=== PATIENT | female | born 1990 | race American Indian/Alaskan Native ===

== ENCOUNTER 2017-12-25 21:55 | Emergency (ER) | payer SELFPAY ==
--- NOTE | 2017-12-25 23:22 | Emergency Department Report ---
ED Seizure HPI - General Chief Complaint: Seizure Stated Complaint: SEIZURE Time Seen by Provider: 12/25/17 23:09 Source: patient Mode of arrival: Stretcher Limitations: No Limitations - History of Present Illness Initial Comments: Patient is 27-year-old female with history of bipolar currently admitted to a psychiatric facility. Patient brought to the ER via EMS for evaluation of possible seizure. Parents is present at time of examination. Patient parent Stated that patient never had any history of seizure until last Wednesday when she started having a jerking movement but patient was alert and oriented 3 rotation was she's having this moment. She told them that she was diagnosed with seizure while she was incarcerated and she was treated with his Trileptal. Patient had one episode this evening and she received 2 mg of Ativan. MD Complaint: possible seizure - Related Data Allergies Allergy/AdvReac Type Severity Reaction Status Date / Time No Known Allergies Allergy Verified 12/25/17 23:29 ED Review of Systems ROS: Stated complaint: SEIZURE Other details as noted in HPI Comment: All other systems reviewed and negative Constitutional: denies: chills, fever Respiratory: denies: cough, orthopnea, shortness of breath, SOB with exertion, SOB at rest, wheezing Cardiovascular: denies: chest pain Gastrointestinal: denies: abdominal pain, nausea, vomiting ED Past Medical Hx - Past Medical History Previous Medical History?: Yes Hx Seizures: Yes Hx Psychiatric Treatment: Yes (Bipolar, Schizoaffective Disorder) ED Physical Exam - General Limitations: No Limitations General appearance: alert, in no apparent distress - Head Head exam: Present: atraumatic, normocephalic, normal inspection - Eye Eye exam: Present: normal appearance - ENT ENT exam: Present: normal exam, normal orophraynx, mucous membranes moist - Respiratory Respiratory exam: Present: normal lung sounds bilaterally. Absent: respiratory distress, wheezes, rales, rhonchi, stridor, chest wall tenderness, accessory muscle use, decreased breath sounds, prolonged expiratory - Cardiovascular Cardiovascular Exam: Present: regular rate, normal rhythm, normal heart sounds - GI/Abdominal GI/Abdominal exam: Present: soft, normal bowel sounds. Absent: distended, tenderness, guarding, rebound, rigid, mass, bruit - Extremities Exam Extremities exam: Present: normal inspection, full ROM, normal capillary refill - Back Exam Back exam: Present: normal inspection, full ROM. Absent: tenderness, CVA tenderness (R), CVA tenderness (L), muscle spasm, paraspinal tenderness, vertebral tenderness, rash noted - Neurological Exam Neurological exam: Present: alert, oriented X3, CN II-XII intact, normal gait, reflexes normal - Psychiatric Psychiatric exam: Present: anxious. Absent: flat affect, manic - Skin Skin exam: Present: warm, intact, normal color ED Course Vital Signs 12/25/17 22:12 Temperature 98.8 F Pulse Rate 90 Respiratory 20 Rate Blood Pressure 114/65 O2 Sat by Pulse 98 Oximetry - Reevaluation(s) Reevaluation #1: 12/26/17 01:16 No evidence of seizure observed in the ER. Patient received Keppra 500 IV bolus. We will start patient on Keppra 500 twice a day and to follow-up with her neurologist in the next 2-3 days. ED Medical Decision Making - Lab Data Result diagrams: 12/25/17 23:39 12/25/17 23:39 Critical care attestation.: If time is entered above; I have spent that time in minutes in the direct care of this critically ill patient, excluding procedure time. ED Disposition Clinical Impression: Seizure Disposition: DC/TX-65 PSY HOSP/PSY UNIT Is pt being admited?: No Condition: Stable Instructions: Recurrent Seizures Adult (ED) Referrals: PRIMARY CARE, [Primary Care Provider] - 3-5 Days
[2017-12-25] MEDS ORDERED: KEPPRA 500 MG/NS 0.82% 100 ML 500 MG/100 ML BAG IV ONE (23:24)
[2017-12-26 00:01] LABS: Basophils # (Auto) 0.1 K/mm3 (0.0-0.1); Eosinophils # (Auto) 0.1 K/mm3 (0.0-0.4); Eosinophils % (Auto) 1.3 % (0.0-4.3); Hematocrit 31.5 % (30.3-42.9); Hemoglobin 10.5 gm/dl (10.1-14.3); Lymphocytes # (Auto) 2.4 K/mm3 (1.2-5.4); Lymphocytes % (Auto) 32.1 % (13.4-35.0); Mean Corpuscular HGB Conc 33 % (30-34); Mean Corpuscular Hemoglobin 29 pg (28-32); Mean Corpuscular Volume 88 fl (79-97); Monocytes # (Auto) 0.7 K/mm3 (0.0-0.8); Monocytes % (Auto) 9.2 % (0.0-7.3); Platelet Count 257 K/mm3 (140-440); Red Blood Count 3.57 M/mm3 (3.65-5.03); Red Cell Distribution Width 14.3 % (13.2-15.2)
[2017-12-26 00:11] LABS: Alanine Aminotransferase 55 units/L (7-56); Albumin 3.9 g/dL (3.9-5); BUN/Creatinine Ratio 20; Blood Urea Nitrogen 12 mg/dL (7-17); Calcium 9.4 mg/dL (8.4-10.2); Hemolysis Index 8
[2017-12-26 00:35] LABS: Bilirubin,Direct < 0.2 mg/dL (0-0.2)
[2017-12-26 00:48] LABS: Bacteria,Urine 2+ /HPF (Negative); Bilirubin,Urine NEG (Negative); Blood,Urine LG (Negative); Color,Urine Yellow (Yellow); Protein,Urine <15 mg/dL mg/dL (Negative); Urobilinogen,Urine < 2.0 mg/dL (<2.0)
[2017-12-26 00:54] LABS: Amphetamine Screen,Urine PRESUMPTIVE NEGATIVE; Benzodiazepines Screen,Urine PRESUMPTIVE NEGATIVE; Cannabinoid Screen,Urine PRESUMPTIVE NEGATIVE; Cocaine Screen,Urine PRESUMPTIVE NEGATIVE; Methadone Screen,Urine PRESUMPTIVE NEGATIVE; Opiate Screen,Urine PRESUMPTIVE NEGATIVE
[2017-12-26 02:04] VITALS: BP 117/73
== END 2017-12-26 02:50 ==
LOC: ED 21:55
DX: R56.9 Unspecified convulsions (principal); F31.9 Bipolar disorder, unspecified; F25.9 Schizoaffective disorder, unspecified
CPT/HCPCS: 36415; 80048; 80074; 80307; 81001; 84703; 85025; 96374; 99285; G0480; J1953; 80320

== ENCOUNTER 2017-12-30 17:00 | Emergency (ER) | payer SELFPAY ==
[2017-12-30 17:22] VITALS: BP 130/78
== END 2017-12-30 20:50 | disposition left against medical advice (07) ==
LOC: ED 17:00
DX: R56.9 Unspecified convulsions (principal); Z53.21 Procedure and treatment not carried out due to patient leaving prior to being seen by health care provider

== ENCOUNTER 2018-01-21 20:33 | Emergency (ER) | payer SELFPAY ==
[2018-01-21] MEDS ORDERED: BENADRYL ONE (20:39)
[2018-01-21] MEDS ORDERED: BENADRYL IM ONE (20:41)
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
--- NOTE | 2018-01-21 21:10 | XRay Report ---
FINAL REPORT PROCEDURE: XR CHEST 1V AP TECHNIQUE: Chest radiograph anteroposterior view. CPT 00450 HISTORY: overdose ? aspiration COMPARISON: No prior studies are available for comparison. FINDINGS: Heart: Normal. Mediastinum/Vessels: Normal. Lungs/Pleural space: Normal. Bony thorax: No acute osseous abnormality. Life support devices: None. IMPRESSION: No acute cardiopulmonary abnormality.
[2018-01-21] MEDS ORDERED: HALDOL IM PRN (21:19)
[2018-01-21 21:23] LABS: Hematocrit 33.5 % (30.3-42.9); Hemoglobin 11.1 gm/dl (10.1-14.3); Mean Corpuscular HGB Conc 33 % (30-34); Mean Corpuscular Hemoglobin 30 pg (28-32); Mean Corpuscular Volume 89 fl (79-97); Platelet Count 246 K/mm3 (140-440); Red Blood Count 3.75 M/mm3 (3.65-5.03); Red Cell Distribution Width 13.7 % (13.2-15.2)
[2018-01-21] MEDS ORDERED: NACL 0.9% 1000 ML 1,000 ML IV ONE (21:30)
[2018-01-21 21:39] LABS: Alanine Aminotransferase 39 units/L (7-56); Albumin 4.2 g/dL (3.9-5); BUN/Creatinine Ratio 20; Blood Urea Nitrogen 12 mg/dL (7-17); Calcium 9.7 mg/dL (8.4-10.2); Hemolysis Index 14
[2018-01-21 21:53] LABS: Bilirubin,Urine NEG (Negative); Blood,Urine LG (Negative); Color,Urine Yellow (Yellow); Mucus,Urine FEW /HPF; Protein,Urine <15 mg/dL mg/dL (Negative); Urobilinogen,Urine < 2.0 mg/dL (<2.0)
[2018-01-21 21:54] LABS: RBC,Urine > 182.0 /HPF (0.0-6.0)
--- NOTE | 2018-01-21 22:16 | Cat Scan Report ---
FINAL REPORT PROCEDURE: CT HEAD/BRAIN WO CON TECHNIQUE: Computerized tomography of the head was performed without contrast material. HISTORY: overdose altered found down COMPARISON: No prior studies are available for comparison. FINDINGS: Skull and scalp: Normal. Paranasal sinuses: Normal. Ventricles and subarachnoid spaces: Normal. Cerebrum: No evidence of hemorrhage, acute infarction or mass . Cerebellum and brainstem: No evidence of hemorrhage, acute infarction or mass. Vasculature: Normal. Comments: None. IMPRESSION: Normal Examination
--- NOTE | 2018-01-21 22:29 | Cat Scan Report ---
FINAL REPORT PROCEDURE: CT CERVICAL SPINE WO CON TECHNIQUE: Computerized tomography of the cervical spine was performed from the skull base to T1 without contrast material. HISTORY: overdose altered found down COMPARISON: No prior studies are available for comparison. FINDINGS: Vertebral height is within normal limits. An acute fracture is not identified. There is loss of cervical lordosis. C1-2: No significant abnormality. C2-3: No significant abnormality. C3-4: No significant abnormality. C4-5: No significant abnormality. C5-6: No significant abnormality. C6-7: No significant abnormality. C7-T1: No significant abnormality. Other: No additional findings. IMPRESSION: Straightening of the cervical spine is most likely secondary to spasm or positioning. No acute fracture No obvious spinal canal or neural foraminal compromise..
[2018-01-21] MEDS ORDERED: K-DUR PO ONE (22:30)
[2018-01-21] MEDS ORDERED: MAGNESIUM SULFATE 2GM/50ML 2 GM/50 ML BAG IV ONE (22:30)
[2018-01-21] MEDS ORDERED: MAG-OX PO STA (22:30)
[2018-01-21 23:27] LABS: Amphetamine Screen,Urine PRESUMPTIVE NEGATIVE; Benzodiazepines Screen,Urine PRESUMPTIVE NEGATIVE; Cannabinoid Screen,Urine PRESUMPTIVE NEGATIVE; Cocaine Screen,Urine PRESUMPTIVE NEGATIVE; Methadone Screen,Urine PRESUMPTIVE NEGATIVE; Opiate Screen,Urine PRESUMPTIVE NEGATIVE
[2018-01-21] MEDS: KCL 10MEQ/100ML 10 MEQ/100 ML BAG IV SCH (23:52)
[2018-01-22] MEDS: KCL 10MEQ/100ML 10 MEQ/100 ML BAG IV SCH ×3 (05:10→08:06)
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
[2018-01-23 00:35] LABS: BUN/Creatinine Ratio 21; Blood Urea Nitrogen 17 mg/dL (7-17); Calcium 9.3 mg/dL (8.4-10.2)
[2018-01-23 00:36] LABS: Hemolysis Index 5
[2018-01-23] MEDS: ATIVAN IM PRN ×2 (09:00→18:47)
[2018-01-23] MEDS ORDERED: KEPPRA 1,000 MG/NS 0.75% 100ML 1,000 MG/100 ML BAG IV ONE (09:07)
[2018-01-23] MEDS ORDERED: ATIVAN IV ONE (09:07)
--- NOTE | 2018-01-23 23:56 | Progress Note ---
Subjective - Reason for Consult Consult date: 01/23/18 Reason for consult: Psychiatric Follow-up Evaluation - Chief Complaint Chief complaint: " Ready to go" Mental Status Exam - Vital signs Last Vital Signs Temp 98.3 F 01/23/18 21:00 Pulse 112 H 01/23/18 21:00 Resp 20 01/23/18 21:00 BP 133/76 01/23/18 21:00 Pulse Ox 99 01/23/18 21:00
[2018-01-24] MEDS ORDERED: TRILEPTAL PO ONE (09:28)
[2018-01-24] MEDS ORDERED: KEPPRA PO SCH (10:00)
--- NOTE | 2018-01-24 11:52 | Progress Note ---
Subjective - Reason for Consult Consult date: 01/24/18 Reason for consult: Psychiatry Follow-up - Chief Complaint Chief complaint: "I want to join my friend" 27-year-old AA female who present to the ER for overdosing on several pills. Today the patient is calm and cooperative, but depressed during the assessment. She rate her depression 6/10, with 10 being the worse because of the voices. She stated that the voices are loud and active in her ear. She could not elaborate about what the voices are saying when asked. Also, she stated that she want to "" because of the voices and to join her best friend who recently. She stated that she would overdose when given the chance. She denies HI's and VH's. She denies any side effects of her medication. Mental Status Exam - Vital signs Last Vital Signs Temp 97.9 F 01/24/18 09:47 Pulse 91 H 01/24/18 09:47 Resp 18 01/24/18 09:47 BP 110/78 01/24/18 09:47 Pulse Ox 98 01/24/18 09:47 - Exam Narrative exam: MSE: Appearance: calm, cooperative Behavior: regular eye contact Speech: regular rate and tone Mood: "depressed" Affect: congruent to mood Thought Process: circumstantial Thought Content: denies HI's and VH's Motor Activity: sitting up in the bed Cognition: A/O x 3 Insight: poor Judgment: poor Assessment and Plan Impression: Unspecified Psychosis. Today the patient is calm and cooperative during the assessment. The patient endorses SI's with a plan to overdose. UDS negative. DDx: R/O Schizophrenia, Schizoaffective DO, R/O Bipolar DO, R/O MDD with psychosis Recommendations/Plan: Continue 1013 with placement to inpatient psy services. Increase Seroquel to 200 mg PO HS for mood/psychosis. Discussed possible metabolic side effects of Seroquel with the patient.
[2018-01-24] MEDS: KEPPRA PO SCH ×2 (16:24→22:13)
[2018-01-25] MEDS: KEPPRA PO SCH ×3 (08:32→20:19)
--- NOTE | 2018-01-25 13:45 | Progress Note ---
Subjective - Reason for Consult Consult date: 01/25/18 Reason for consult: Psychiatry Follow-up - Chief Complaint Chief complaint: "I feel better" 27-year-old AA female who present to the ER for overdosing on several pills. Today the patient is calm and cooperative during the assessment. She stated that she feel better, but still miss her friend who committed suicide early this year. She stated that the voices has "ceased." She denies SI/Hi's and AVH' s. She denies any side effects of her medication. Mental Status Exam - Vital signs Last Vital Signs Temp 99.0 F 01/24/18 21:00 Pulse 76 01/24/18 21:00 Resp 16 01/24/18 21:00 BP 121/82 01/24/18 21:00 Pulse Ox 98 01/24/18 21:00 - Exam Narrative exam: MSE: Appearance: calm, cooperative Behavior: regular eye contact Speech: regular rate and tone Mood: "better" Affect: congruent to mood Thought Process: circumstantial Thought Content: denies SI/HI's and AVH's Motor Activity: sitting up in the bed Cognition: A/O x 3 Insight: variable Judgment: variable Assessment and Plan Impression: Unspecified Psychosis. Today the patient is calm and cooperative during the assessment. UDS negative. DDx: R/O Schizophrenia, Schizoaffective DO, R/O Bipolar DO, R/O MDD with psychosis Recommendations/Plan: Reevaluate 1013 in 24 hours determine proper dispo. A safety contract and a suicide risk assessment need to be completed if the patient's 1013 is rescinded. Continue Seroquel 200 mg PO HS for mood/psychosis. Discussed possible metabolic side effects of Seroquel with the patient.
[2018-01-26] MEDS: KEPPRA PO SCH (08:41)
[2018-01-26 09:22] VITALS: BP 109/57
== END 2018-01-26 10:16 ==
LOC: EEVIPCON 20:33 → ED 20:33
DX: T42.6X2A Poisoning by other antiepileptic and sedative-hypnotic drugs, intentional self-harm, initial encounter (principal); F32.9 Major depressive disorder, single episode, unspecified; F25.9 Schizoaffective disorder, unspecified; F29 Unspecified psychosis not due to a substance or known physiological condition; F22 Delusional disorders; F17.200 Nicotine dependence, unspecified, uncomplicated; Z91.018 Allergy to other foods; Z88.8 Allergy status to other drugs, medicaments and biological substances; Y92.89 Other specified places as the place of occurrence of the external cause
CPT/HCPCS: 36415; 70450; 71045; 72125; 80048; 80053; 80307; 81001; 82140; 82550; 83735; 84484; 84702; 85027; 93005; 93010; 96361; 96365; 96372; 96375; 99285; G0480; J1200; J1630; J1953; J2060; J3475; J3480; J7030; 80320

== ENCOUNTER 2019-03-31 20:14 | Inpatient (IN) | payer OTHER ==
[2019-03-31] MEDS ORDERED: CHARCOAL/SORBITOL SOLUTION 25 GM/120 ML PO ONE (20:45)
[2019-03-31] MEDS ORDERED: SODIUM CHLORIDE 0.9% 1000 ML 1,000 ML IV ONE (21:04)
--- NOTE | 2019-03-31 21:10 | Emergency Department Report ---
<MARYJO LOU - Last Filed: 03/31/19 21:32> History of Present Illness - General Chief Complaint: Overdose Stated Complaint: OVERDOSE Time Seen by Provider: 03/31/19 20:44 - Related Data Home Medications Medication Instructions Recorded Confirmed Last Taken OXcarbazepine [Trileptal] 750 mg PO BID 01/23/18 04/12/18 Unknown ARIPiprazole [Abilify] 10 mg PO 04/12/18 02/09/18 Divalproex Sodium [Depakote] 500 mg PO TID 04/12/18 04/12/18 02/09/18 Allergies Allergy/AdvReac Type Severity Reaction Status Date / Time orange Allergy Anaphylaxis Verified 01/26/18 08:42 trazodone Allergy Unknown Verified 03/31/19 23:41 ED Past Medical Hx - Medications Home Medications: Home Medications Medication Instructions Recorded Confirmed Last Taken Type OXcarbazepine [Trileptal] 750 mg PO BID 01/23/18 04/12/18 Unknown History ARIPiprazole [Abilify] 10 mg PO 04/12/18 02/09/18 History Divalproex Sodium [Depakote] 500 mg PO TID 04/12/18 04/12/18 02/09/18 History ED Course - Reevaluation(s) Reevaluation #1: 03/31/19 21:33 after 1 L NS sbp 116 (improved) ED Disposition Clinical Impression: Overdose Qualifiers: Encounter type: initial encounter Injury intent: intentional self-harm Qualified Code(s): T50.902A - Poisoning by unspecified drugs, medicaments and biological substances, intentional self-harm, initial encounter Suicidal overdose Qualifiers: Encounter type: initial encounter Qualified Code(s): T50.902A - Poisoning by unspecified drugs, medicaments and biological substances, intentional self-harm, initial encounter Disposition: -09 OP ADMIT IP TO THIS HOSP Condition: Stable <RITA SEAMAN - Last Filed: 04/01/19 02:59> History of Present Illness - General Source: patient, EMS Mode of arrival: Stretcher Limitations: Altered Mental Status, Physical Limitation - History of Present Illness Initial Comments: Ms. Mcallister is s 89 y/o aaf who presents via EMS s/p intentional ingestion of clonazepam 1 mg tabs x 7, and Geodon 20 mg tabs x 20. poison control was called recommendations note, pt is a/o x3 at this time, drousy, responds and aroused to verbal stimuli, vital signs noted stable on arrival. Pt does verbally confirme SI, states she took the pills then called her ACT Team because she was going through a crisis. pt denies substance. Complaint: intentional overdose Onset/Timin -: hour(s) Intent: suicide attempt How Overdose Was Discovered: called counselor Context: Intentional Overdose: relationship problems, financial issues Associated Symptoms: depression, lethargy Treatments Prior to Arrival: none ED Review of Systems ROS: Stated complaint: OVERDOSE Other details as noted in HPI Constitutional: malaise, other (lethargic ) Eyes: as per HPI ENT: denies: ear pain, throat pain Respiratory: denies: cough, shortness of breath, wheezing Cardiovascular: denies: chest pain, palpitations Endocrine: no symptoms reported Gastrointestinal: denies: abdominal pain, nausea, vomiting, diarrhea Genitourinary: denies: urgency, dysuria, discharge Musculoskeletal: denies: back pain, joint swelling, arthralgia Skin: denies: rash, lesions Neurological: denies: headache, weakness, paresthesias Psychiatric: depression, suicidal thoughts Hematological/Lymphatic: denies: easy bleeding, easy bruising ED Past Medical Hx - Past Medical History Previous Medical History?: Yes Hx Hypertension: Yes Hx Congestive Heart Failure: No Hx Diabetes: No Hx Seizures: Yes Hx Psychiatric Treatment: Yes (Bipolar, Schizoaffective Disorder) Hx Asthma: Yes Hx COPD: No - Surgical History Past Surgical History?: No - Social History Smoking Status: Unknown if ever smoked ED Physical Exam - General Limitations: Altered Mental Status, Physical Limitation General appearance: lethargic - Head Head exam: Present: atraumatic, normocephalic - Eye Eye exam: Present: normal appearance, PERRL, EOMI Pupils: Present: normal accommodation - ENT ENT exam: Present: normal orophraynx, mucous membranes moist - Neck Neck exam: Present: normal inspection, full ROM. Absent: tenderness - Respiratory Respiratory exam: Present: normal lung sounds bilaterally. Absent: respiratory distress, wheezes, stridor, chest wall tenderness - Cardiovascular Cardiovascular Exam: Present: regular rate, normal rhythm, normal heart sounds. Absent: systolic murmur, diastolic murmur, rubs, gallop - GI/Abdominal GI/Abdominal exam: Present: soft, normal bowel sounds. Absent: distended, tenderness, guarding, rebound, rigid, bruit, hernia - Rectal Rectal exam: Present: deferred - Extremities Exam Extremities exam: Present: normal inspection, full ROM, normal capillary refill - Back Exam Back exam: Present: normal inspection, full ROM. Absent: tenderness - Neurological Exam Neurological exam: Present: reflexes normal, other (lethargic ). Absent: motor sensory deficit - Expanded Neurological Exam Expanded Patient oriented to: Present: person, place, time Speech: Present: fluid speech Cranial nerves: EOM's Intact: Normal, Gag Reflex: Normal, Tongue Deviation: Normal, Nystagmus: Normal, Facial Sensation: Normal Motor strength exam: RUE: 5, LUE: 5, RLE: 5, LLE: 5 Best Eye Response ([place]): (4) open spontaneously Best Motor Response ([place]): (6) obeys commands Best Verbal Response ([place]): (5) oriented [place] Total: 15 - Psychiatric Psychiatric exam: Present: flat affect, suicidal ideation - Skin Skin exam: Present: warm, dry, intact, normal color. Absent: rash ED Course Vital Signs 03/31/19 03/31/19 03/31/19 20:46 21:41 22:01 Temperature 98.3 F 98.3 F Pulse Rate 83 81 77 Respiratory 21 16 22 Rate Blood Pressure 74/45 113/52 Blood Pressure 74/45 116/78 [Left] O2 Sat by Pulse 96 95 97 Oximetry 04/01/19 01:06 Temperature 98.2 F Pulse Rate 82 Respiratory 16 Rate Blood Pressure Blood Pressure 111/59 [Left] O2 Sat by Pulse 100 Oximetry - Reevaluation(s) Reevaluation #1: bp: 74/45, pt is drousy but easily arousable, a/o x 3, iv established, will bolus ivf NS 1 liter, then 150 cc /hr, [place] 100gm po, and continue supportive care, pt verbalized understanding of treatment plan. 03/31/19 21:05 ED Medical Decision Making - Lab Data Result diagrams: 03/31/19 21:10 03/31/19 21:10 Labs 03/31/19 03/31/19 03/31/19 21:10 21:10 21:10 WBC 7.2 RBC 4.00 Hgb 12.1 Hct 36.1 MCV 90 MCH 30 MCHC 34 RDW 13.5 Plt Count 257 Lymph % (Auto) 28.4 [place] % (Auto) 11.0 H Eos % (Auto) 2.6 Baso % (Auto) 0.6 Lymph # 2.0 [place] # 0.8 Eos # 0.2 Baso # 0.0 Seg Neutrophils % 57.4 Seg Neutrophils # 4.1 Sodium 137 Potassium 4.8 Chloride 103.5 Carbon Dioxide 25 Anion Gap 13 BUN 12 Creatinine 0.6 L Estimated GFR > 60 BUN/Creatinine Ratio 20 Glucose 84 Calcium 9.1 Magnesium 2.10 Total Bilirubin 0.20 AST 41 H ALT 38 Alkaline Phosphatase 44 Total Protein 6.4 Albumin 3.8 L Albumin/Globulin Ratio 1.5 HCG, Qual Urine Color Urine Turbidity Urine pH Ur Specific [place] Urine Protein Urine Glucose (UA) Urine Ketones Urine Blood Urine Nitrite Urine Bilirubin Urine Urobilinogen Ur Leukocyte Esterase Urine WBC (Auto) Urine RBC (Auto) U Epithel Cells (Auto) Urine Yeast ([place]) Salicylates < 0.3 L Urine Opiates Screen Urine Methadone Screen Acetaminophen Ur Barbiturates Screen Ur Phencyclidine Scrn Ur Amphetamines Screen U Benzodiazepines Scrn Urine Cocaine Screen U Marijuana (THC) Screen Drugs of Abuse Note Plasma/Serum Alcohol 03/31/19 03/31/19 03/31/19 21:10 21:10 21:10 WBC RBC Hgb Hct MCV MCH MCHC RDW Plt Count Lymph % (Auto) [place] % (Auto) Eos % (Auto) Baso % (Auto) Lymph # [place] # Eos # Baso # Seg Neutrophils % Seg Neutrophils # Sodium Potassium Chloride Carbon Dioxide Anion Gap BUN Creatinine Estimated GFR BUN/Creatinine Ratio Glucose Calcium Magnesium Total Bilirubin AST ALT Alkaline Phosphatase Total Protein Albumin Albumin/Globulin Ratio HCG, Qual Negative Urine Color Urine Turbidity Urine pH Ur Specific [place] Urine Protein Urine Glucose (UA) Urine Ketones Urine Blood Urine Nitrite Urine Bilirubin Urine Urobilinogen Ur Leukocyte Esterase Urine WBC (Auto) Urine RBC (Auto) U Epithel Cells (Auto) Urine Yeast (Budding) Salicylates Urine Opiates Screen Urine Methadone Screen Acetaminophen < 5.0 L Ur Barbiturates Screen Ur Phencyclidine Scrn Ur Amphetamines Screen U Benzodiazepines Scrn Urine Cocaine Screen U Marijuana (THC) Screen Drugs of Abuse Note Plasma/Serum Alcohol < 0.01 03/31/19 03/31/19 Unknown Unknown WBC RBC Hgb Hct MCV MCH MCHC RDW Plt Count Lymph % (Auto) [place] % (Auto) Eos % (Auto) Baso % (Auto) Lymph # [place] # Eos # Baso # Seg Neutrophils % Seg Neutrophils # Sodium Potassium Chloride Carbon Dioxide Anion Gap BUN Creatinine Estimated GFR BUN/Creatinine Ratio Glucose Calcium Magnesium Total Bilirubin AST ALT Alkaline Phosphatase Total Protein Albumin Albumin/Globulin Ratio HCG, Qual Urine Color Yellow Urine Turbidity Clear Urine pH 6.0 Ur Specific [place] 1.016 Urine Protein <15 mg/dl Urine Glucose (UA) Neg Urine Ketones Neg Urine Blood Neg Urine Nitrite Neg Urine Bilirubin Neg Urine Urobilinogen < 2.0 Ur Leukocyte Esterase Neg Urine WBC (Auto) 1.0 Urine RBC (Auto) 2.0 U Epithel Cells (Auto) 2.0 Urine Yeast (Budding) Few Salicylates Urine Opiates Screen Presumptive negative Urine Methadone Screen Presumptive negative Acetaminophen Ur Barbiturates Screen Presumptive negative Ur Phencyclidine Scrn Presumptive negative Ur Amphetamines Screen Presumptive negative U Benzodiazepines Scrn Presumptive negative Urine Cocaine Screen Presumptive negative U Marijuana (THC) Screen Presumptive negative Drugs of Abuse Note Disclamer Plasma/Serum Alcohol - EKG Data EKG shows normal: sinus rhythm, axis, intervals, QRS complexes, ST-T waves Rate: tachycardia - EKG Data When compared to previous EKG there are: previous EKG unavailable Interpretation: normal EKG (ekg interp by ed attending, normal sr no ST Elevated MD.) - Radiology Data Radiology results: report reviewed, image reviewed - Medical Decision Making I have spoken with Lola from the [facility]. The patient took 20 20mg ziprasidone and 7 1 mg clonazepam. Monitor patient fro [employer] and RESP depression, tachycardia, nausea vomiting diarrhea, hypo or hypertension. They recommend not to give charcoal if the patient is drowsy. 2345: Follow-up phone call with Lola , recommendation monitor for 8 hrs from pres entation. Okay after 430am today in no neg change in symptoms, pt resting quietly at this time, bp: 126/64, hr: 84. o2sat: 100 r/o pt with nad a this time. pt resting quitely at this time with nad. 0145: all labs normal, pt is medically cleared for psych eval and treatment, pending psych consult. 0550: pt resting quitely , remains easily arousable to verbal stimuli, bp: 95.62, hr: 101, discussed case with ED attending recommendation. Admit to hospitalist Dr. Salvador, SI, 1013, pt pending pysch evaluation. 0252: Consulted Hospitalist: discussed poison controlled recommendation of 8 hr observation. pt arrived to ed at 823pm, 8 hr obs period will end at rought 0430. Hospitalist recommendation admit for dx: overdose, continue ivfs,1013, Psych evaluation for SI. Pt care handoff given to hospitalist, will admit at this time. Critical care attestation.: If time is entered above; I have spent that time in minutes in the direct care of this critically ill patient, excluding procedure time. ED Disposition Is pt being admited?: Yes Does the pt Need Aspirin: No Time of Disposition: 02:59
[2019-03-31] MEDS ORDERED: SODIUM CHLORIDE 0.9% 1000 ML 1,000 ML IV SCH (21:15)
[2019-03-31 21:41] LABS: Basophils % (Auto) 0.6 % (0.0-1.8); Eosinophils # (Auto) 0.2 K/mm3 (0.0-0.4); Eosinophils % (Auto) 2.6 % (0.0-4.3); Hematocrit 36.1 % (30.3-42.9); Hemoglobin 12.1 gm/dl (10.1-14.3); Lymphocytes % (Auto) 28.4 % (13.4-35.0); Mean Corpuscular HGB Conc 34 % (30-34); Mean Corpuscular Volume 90 fl (79-97); Monocytes # (Auto) 0.8 K/mm3 (0.0-0.8); Platelet Count 257 K/mm3 (140-440); Red Cell Distribution Width 13.5 % (13.2-15.2)
[2019-03-31 21:44] LABS: Albumin 3.8 g/dL (3.9-5); BUN/Creatinine Ratio 20; Blood Urea Nitrogen 12 mg/dL (7-17); Calcium 9.1 mg/dL (8.4-10.2); Hemolysis Index 195
[2019-03-31 21:47] LABS: Alanine Aminotransferase 38 units/L (7-56)
[2019-03-31 21:50] LABS: Bilirubin,Urine NEG (Negative); Blood,Urine NEG (Negative); Color,Urine Yellow (Yellow); Protein,Urine <15 mg/dL mg/dL (Negative); Urobilinogen,Urine < 2.0 mg/dL (<2.0)
[2019-03-31 22:08] LABS: Amphetamine Screen,Urine PRESUMPTIVE NEGATIVE; Benzodiazepines Screen,Urine PRESUMPTIVE NEGATIVE; Cannabinoid Screen,Urine PRESUMPTIVE NEGATIVE; Cocaine Screen,Urine PRESUMPTIVE NEGATIVE; Methadone Screen,Urine PRESUMPTIVE NEGATIVE; Opiate Screen,Urine PRESUMPTIVE NEGATIVE
[2019-04-01] MEDS ORDERED: SODIUM CHLORIDE 0.9% 1000 ML 1,000 ML IV ONE (03:07)
[2019-04-01] MEDS ORDERED: ONDANSETRON 4 MG/2 ML INJ IV PRN (04:00)
--- NOTE | 2019-04-01 04:08 | History and Physical Report ---
History of Present Illness Date of examination: 04/01/19 History of present illness: 29-year-old woman with a history of bipolar, schizophrenia, personality disorder, asthma, seizure, emergency room for evaluation. She attempted to kill herself this morning because she stated that she did not feel like living anymore and the world would be better off her . She took twenty pills of 20 mg Geodon and 7 pills of 1 mg Klonopin. States she feels tired and weak. She denies any new stressors, states she is compliant with her medications. patient has been hypotensive in the emergency room to which she is been responding to IV fluid. Review Of Systems: Constitutional: no weight loss Ears, eyes, nose, mouth and throat: no nasal congestion, no nasal discharge, no sinus pressure, blurry vision, diplopia Neck: No neck pain or rigidity. Cardiovascular: No chest pain, palpitations Respiratory: No shortness of breath, cough Gastrointestinal: No abdominal pain, hematochezia Genitourinary : no dysuria, frequency , hematuria Musculoskeletal: no muscle ache Integumentary: no rash, no pruritis Neurological: no parathesias, focal weakness Endocrine: no cold or heat intolerance, no polyuria or polydipsia Hematologic/Lymphatic: no easy bruising, no easy bleeding, no gland swelling Allergic/Immunologic: no urticaria, no angioedema. Medications and Allergies Allergies Allergy/AdvReac Type Severity Reaction Status Date / Time orange Allergy Anaphylaxis Verified 01/26/18 08:42 trazodone Allergy Unknown Verified 03/31/19 23:41 Home Medications Medication Instructions Recorded Confirmed Last Taken Type Ziprasidone [Geodon] 60 mg PO BID 04/01/19 04/01/19 Unknown History clonazePAM [Klonopin] 1 mg PO HS 04/01/19 04/01/19 Unknown History Active Meds: Active Medications Sodium Chloride (Nacl 0.9% 1000 Ml) 1,000 mls @ 150 mls/hr IV DIRECT RONEN Last Admin: 03/31/19 21:40 Dose: 150 mls/hr Documented by: Sodium Chloride (Nacl 0.9% 1000 Ml) 1,000 mls @ 999 mls/hr IV BOLUS ONE Stop: 04/01/19 04:07 Last Admin: 04/01/19 03:09 Dose: 999 mls/hr Documented by: Exam - Physical Exam Narrative exam: Gen. appearance: Patient lying in bed in no acute distress HEENT: Normocephalic/atraumatic, pupils equal round reactive to light, extra occular movement intact, no scleral icterus, no JVD or thyromegaly or nodule, neck is supple, mucous membrane moist, no erythema or exudate Heart: S1-S2, regular rate and rhythm Lungs: Clear to auscultation bilateral breathing comfortable Abdomen: Positive bowel sounds, nontender, nondistended, no organomegaly Extremities: No edema, cyanosis, clubbing Neuro:: Oriented 3 , cranial nerves II-12 intact, speech, motor intact Skin: No rash, nodules, warm dry - Constitutional Vitals: Temp Pulse Resp BP Pulse Ox 98.2 F 82 19 137/89 97 04/01/19 01:06 04/01/19 02:00 04/01/19 03:01 04/01/19 03:01 04/01/19 03:01 Results - Labs CBC & Chem 7: 03/31/19 21:10 03/31/19 21:10 Labs: Abnormal lab results 03/31/19 03/31/19 03/31/19 Range/Units 21:10 21:10 21:10 [place] % (Auto) 11.0 H (0.0-7.3) % Creatinine 0.6 L (0.7-1.2) mg/dL AST 41 H (5-40) units/L Albumin 3.8 L (3.9-5) g/dL Salicylates < 0.3 L (2.8-20.0) mg/dL Acetaminophen (10.0-30.0) ug/mL 03/31/19 Range/Units 21:10 [place] % (Auto) (0.0-7.3) % Creatinine (0.7-1.2) mg/dL AST (5-40) units/L Albumin (3.9-5) g/dL Salicylates (2.8-20.0) mg/dL Acetaminophen < 5.0 L (10.0-30.0) ug/mL Assessment and Plan Assessment Hypotension secondary to drug overdose Continue IV fluid, monitor Poison control was contacted, recommended supportive care Drug overdose with suicide attempt Consult psych, place on 1013 Bipolar/personality disorder/schizophrenia Hold psych medications for now DVT prophylaxis
[2019-04-01] MEDS: SODIUM CHLORIDE 0.9% 1000 ML 1,000 ML IV SCH ×2 (04:55→12:08)
[2019-04-01 06:56] LABS: Basophils % (Auto) 0.7 % (0.0-1.8); Eosinophils # (Auto) 0.2 K/mm3 (0.0-0.4); Eosinophils % (Auto) 3.4 % (0.0-4.3); Hematocrit 36.6 % (30.3-42.9); Lymphocytes % (Auto) 37.3 % (13.4-35.0); Mean Corpuscular HGB Conc 33 % (30-34); Mean Corpuscular Volume 91 fl (79-97); Monocytes # (Auto) 0.7 K/mm3 (0.0-0.8); Monocytes % (Auto) 13.3 % (0.0-7.3); Platelet Count 234 K/mm3 (140-440); Red Blood Count 4.03 M/mm3 (3.65-5.03); Red Cell Distribution Width 13.7 % (13.2-15.2)
[2019-04-01 07:14] LABS: BUN/Creatinine Ratio 20; Blood Urea Nitrogen 10 mg/dL (7-17); Calcium 8.6 mg/dL (8.4-10.2); Hemolysis Index 9
[2019-04-01] MEDS ORDERED: ENOXAPARIN 30 MG/0.3 ML INJ SUB-Q SCH (10:00)
[2019-04-01] MEDS: ENOXAPARIN 40 MG/0.4 ML INJ SUB-Q SCH (10:57)
[2019-04-01] MEDS ORDERED: ALBUTEROL 2.5 MG/3 ML NEBU IH PRN (13:23)
--- NOTE | 2019-04-01 13:25 | Event Note ---
Date: 04/01/19 Pt admitted today for drug overdose 2/2 suicidal attempt. BP stable on IVF. Psych consulted, f/u RECS
[2019-04-01] MEDS ORDERED: HALOPERIDOL LACTATE 5 MG/1 ML INJ IM ONE (14:00)
[2019-04-02 08:32] LABS: BUN/Creatinine Ratio 18; Blood Urea Nitrogen 9 mg/dL (7-17); Calcium 8.4 mg/dL (8.4-10.2); Hemolysis Index 1
[2019-04-02] MEDS: SODIUM CHLORIDE 0.9% 1000 ML 1,000 ML IV SCH ×2 (08:41→14:52)
--- NOTE | 2019-04-02 08:51 | Progress Note ---
Assessment and Plan Assessment and plan: 29-year-old woman with bipolar disease schizophrenia who presents to the hospital after suicidal attempts. She took 20 Geodon pills and 7 Klonopin. She was confused and altered when she came into the hospital. But is now improved. Diagnosis Suicide attempt Acute toxic metabolic encephalopathy Schizoaffective disorder Plan Continue 1013 Psych consult placed Mentation has improved. Patient is medically optimized for transfer to inpatient psych Hospitalist Physical - Constitutional Vitals: Temp Pulse Resp BP Pulse Ox 98.1 F 65 18 109/67 98 04/02/19 07:32 04/02/19 07:32 12 07:32 04/02/19 07:32 04/02/19 07:32 Results - Labs CBC & Chem 7: 04/01/19 06:19 04/02/19 07:17 Labs: Laboratory Last Values WBC 5.3 K/mm3 (4.5-11.0) 04/01/19 06:19 RBC 4.03 M/mm3 (3.65-5.03) 04/01/19 06:19 Hgb 12.0 gm/dl (10.1-14.3) 04/01/19 06:19 Hct 36.6 % (30.3-42.9) 04/01/19 06:19 MCV 91 fl (79-97) 04/01/19 06:19 MCH 30 pg (28-32) 04/01/19 06:19 MCHC 33 % (30-34) 04/01/19 06:19 RDW 13.7 % (13.2-15.2) 04/01/19 06:19 Plt Count 234 K/mm3 (140-440) 04/01/19 06:19 Lymph % (Auto) 37.3 % (13.4-35.0) H 04/01/19 06:19 [place] % (Auto) 13.3 % (0.0-7.3) H 04/01/19 06:19 Eos % (Auto) 3.4 % (0.0-4.3) 04/01/19 06:19 Baso % (Auto) 0.7 % (0.0-1.8) 04/01/19 06:19 Lymph # 2.0 K/mm3 (1.2-5.4) 04/01/19 06:19 [place] # 0.7 K/mm3 (0.0-0.8) 04/01/19 06:19 Eos # 0.2 K/mm3 (0.0-0.4) 04/01/19 06:19 Baso # 0.0 K/mm3 (0.0-0.1) 04/01/19 06:19 Seg Neutrophils % 45.3 % (40.0-70.0) 04/01/19 06:19 Seg Neutrophils # 2.4 K/mm3 (1.8-7.7) 04/01/19 06:19 Sodium 140 mmol/L (137-145) 04/02/19 07:17 Potassium 4.1 mmol/L (3.6-5.0) 04/02/19 07:17 Chloride 108.0 mmol/L (98-107) H 04/02/19 07:17 Carbon Dioxide 20 mmol/L (22-30) L 04/02/19 07:17 Anion Gap 16 mmol/L 04/02/19 07:17 BUN 9 mg/dL (7-17) 04/02/19 07:17 Creatinine 0.5 mg/dL (0.7-1.2) L 04/02/19 07:17 Estimated GFR > 60 ml/min 04/02/19 07:17 BUN/Creatinine Ratio 18 % 04/02/19 07:17 Glucose 93 mg/dL (65-100) 04/02/19 07:17 Calcium 8.4 mg/dL (8.4-10.2) 04/02/19 07:17 Phosphorus 3.30 mg/dL (2.5-4.5) 04/01/19 06:19 Magnesium 2.10 mg/dL (1.7-2.3) 04/01/19 06:19 Total Bilirubin 0.20 mg/dL (0.1-1.2) 03/31/19 21:10 AST 41 units/L (5-40) H 03/31/19 21:10 ALT 38 units/L (7-56) 03/31/19 21:10 Alkaline Phosphatase 44 units/L (35-129) 03/31/19 21:10 Total Protein 6.4 g/dL (6.3-8.2) 03/31/19 21:10 Albumin 3.8 g/dL (3.9-5) L 03/31/19 21:10 Albumin/Globulin Ratio 1.5 % 03/31/19 21:10 HCG, Qual Negative (Negative) 03/31/19 21:10 Urine Color Yellow (Yellow) 03/31/19 Unknown Urine Turbidity Clear (Clear) 03/31/19 Unknown Urine pH 6.0 (5.0-7.0) 03/31/19 Unknown Ur Specific [place] 1.016 (1.003-1.030) 03/31/19 Unknown Urine Protein <15 mg/dl mg/dL (Negative) 03/31/19 Unknown Urine Glucose (UA) Neg mg/dL (Negative) 03/31/19 Unknown Urine Ketones Neg mg/dL (Negative) 03/31/19 Unknown Urine Blood Neg (Negative) 03/31/19 Unknown Urine Nitrite Neg (Negative) 03/31/19 Unknown Urine Bilirubin Neg (Negative) 03/31/19 Unknown Urine Urobilinogen < 2.0 mg/dL (<2.0) 03/31/19 Unknown Ur Leukocyte Esterase Neg (Negative) 03/31/19 Unknown Urine WBC (Auto) 1.0 /HPF (0.0-6.0) 03/31/19 Unknown Urine RBC (Auto) 2.0 /HPF (0.0-6.0) 03/31/19 Unknown U Epithel Cells (Auto) 2.0 /HPF (0-13.0) 03/31/19 Unknown Urine Yeast (Budding) Few /HPF 03/31/19 Unknown Salicylates < 0.3 mg/dL (2.8-20.0) L 03/31/19 21:10 Urine Opiates Screen Presumptive negative 03/31/19 Unknown Urine Methadone Screen Presumptive negative 03/31/19 Unknown Acetaminophen < 5.0 ug/mL (10.0-30.0) L 03/31/19 21:10 Ur Barbiturates Screen Presumptive negative 03/31/19 Unknown Ur Phencyclidine Scrn Presumptive negative 03/31/19 Unknown Ur Amphetamines Screen Presumptive negative 03/31/19 Unknown U Benzodiazepines Scrn Presumptive negative 03/31/19 Unknown Urine Cocaine Screen Presumptive negative 03/31/19 Unknown U Marijuana (THC) Screen Presumptive negative 03/31/19 Unknown Drugs of Abuse Note Disclamer 03/31/19 Unknown Plasma/Serum Alcohol < 0.01 % (0-0.07) 03/31/19 21:10 Active Medications - Current Medications Current Medications: Generic Name Dose Route Start Last Admin Trade Name Freq PRN Reason Stop Dose Admin Acetaminophen 650 mg 04/01/19 04:00 Tylenol PO Q4H PRN Pain MILD(1-3)/Fever >100.5/SMITH Albuterol 2.5 mg 04/01/19 13:23 Proventil IH Q4HRT PRN Shortness Of Breath Enoxaparin Sodium 40 mg 04/01/19 10:00 04/01/19 10:57 Enoxaparin SUB-Q 40 mg QDAY@1000 RONEN Administration Sodium Chloride 1,000 mls @ 150 mls/hr 04/01/19 04:00 04/02/19 08:41 Nacl 0.9% 1000 Ml IV 150 mls/hr DIRECT RONEN Administration Ondansetron HCl 4 mg 04/01/19 04:00 Zofran IV Q8H PRN Nausea And Vomiting Sodium Chloride 10 ml 04/01/19 10:00 04/02/19 02:08 Sodium Chloride Flush Syringe 10 Ml IV Not Given BID RONEN Sodium Chloride 10 ml 04/01/19 04:00 Sodium Chloride Flush Syringe 10 Ml IV PRN PRN LINE FLUSH
[2019-04-02] MEDS: ENOXAPARIN 40 MG/0.4 ML INJ SUB-Q SCH (09:26)
[2019-04-02] MEDS ORDERED: HALOPERIDOL LACTATE 5 MG/1 ML INJ IM ONE (20:26)
[2019-04-02] MEDS ORDERED: diphenhydrAMINE 50 MG/ML VIAL IV ONE (20:34)
[2019-04-02] MEDS ORDERED: LORazepam 2 MG/ML VIAL IM ONE (20:43)
--- NOTE | 2019-04-02 21:45 | Event Note ---
Date: 04/02/19 Code Med called. Upon arrival to room pt is sitting in bed arguing with hospital staff (nurses and security). Pt is clearly agitated. She has pulled out IV line, remove telemetry monitoring ( box and leads) and attempted to spit on staff. VSS. Ordered Ativan 2mg.
[2019-04-03] MEDS: ENOXAPARIN 40 MG/0.4 ML INJ SUB-Q SCH (09:26)
--- NOTE | 2019-04-03 10:11 | Progress Note ---
Assessment and Plan Assessment and plan: 29-year-old woman with bipolar disease schizophrenia who presents to the hospital after suicidal attempts. She took 20 Geodon pills and 7 Klonopin. She was confused and altered when she came into the hospital. But is now improved. Diagnosis Suicide attempt Acute toxic metabolic encephalopathy Schizoaffective disorder Plan Continue 1013 Psych consult placed Mentation has improved.Ativan as needed anxiety Patient is medically optimized for transfer to inpatient psych Hospitalist Physical - Constitutional Vitals: Temp Pulse Resp BP Pulse Ox 98.9 F 80 20 105/70 99 04/03/19 06:15 04/03/19 06:15 04/03/19 06:15 04/03/19 06:15 04/02/19 15:17 Results - Labs CBC & Chem 7: 04/01/19 06:19 04/02/19 07:17 Labs: Laboratory Last Values WBC 5.3 K/mm3 (4.5-11.0) 04/01/19 06:19 RBC 4.03 M/mm3 (3.65-5.03) 04/01/19 06:19 Hgb 12.0 gm/dl (10.1-14.3) 04/01/19 06:19 Hct 36.6 % (30.3-42.9) 04/01/19 06:19 MCV 91 fl (79-97) 04/01/19 06:19 MCH 30 pg (28-32) 04/01/19 06:19 MCHC 33 % (30-34) 04/01/19 06:19 RDW 13.7 % (13.2-15.2) 04/01/19 06:19 Plt Count 234 K/mm3 (140-440) 04/01/19 06:19 Lymph % (Auto) 37.3 % (13.4-35.0) H 04/01/19 06:19 [place] % (Auto) 13.3 % (0.0-7.3) H 04/01/19 06:19 Eos % (Auto) 3.4 % (0.0-4.3) 04/01/19 06:19 Baso % (Auto) 0.7 % (0.0-1.8) 04/01/19 06:19 Lymph # 2.0 K/mm3 (1.2-5.4) 04/01/19 06:19 [place] # 0.7 K/mm3 (0.0-0.8) 04/01/19 06:19 Eos # 0.2 K/mm3 (0.0-0.4) 04/01/19 06:19 Baso # 0.0 K/mm3 (0.0-0.1) 04/01/19 06:19 Seg Neutrophils % 45.3 % (40.0-70.0) 04/01/19 06:19 Seg Neutrophils # 2.4 K/mm3 (1.8-7.7) 04/01/19 06:19 Sodium 140 mmol/L (137-145) 04/02/19 07:17 Potassium 4.1 mmol/L (3.6-5.0) 04/02/19 07:17 Chloride 108.0 mmol/L (98-107) H 04/02/19 07:17 Carbon Dioxide 20 mmol/L (22-30) L 04/02/19 07:17 Anion Gap 16 mmol/L 04/02/19 07:17 BUN 9 mg/dL (7-17) 04/02/19 07:17 Creatinine 0.5 mg/dL (0.7-1.2) L 04/02/19 07:17 Estimated GFR > 60 ml/min 04/02/19 07:17 BUN/Creatinine Ratio 18 % 04/02/19 07:17 Glucose 93 mg/dL (65-100) 04/02/19 07:17 Calcium 8.4 mg/dL (8.4-10.2) 04/02/19 07:17 Phosphorus 3.30 mg/dL (2.5-4.5) 04/01/19 06:19 Magnesium 2.10 mg/dL (1.7-2.3) 04/01/19 06:19 Total Bilirubin 0.20 mg/dL (0.1-1.2) 03/31/19 21:10 AST 41 units/L (5-40) H 03/31/19 21:10 ALT 38 units/L (7-56) 03/31/19 21:10 Alkaline Phosphatase 44 units/L (35-129) 03/31/19 21:10 Total Protein 6.4 g/dL (6.3-8.2) 03/31/19 21:10 Albumin 3.8 g/dL (3.9-5) L 03/31/19 21:10 Albumin/Globulin Ratio 1.5 % 03/31/19 21:10 HCG, Qual Negative (Negative) 03/31/19 21:10 Urine Color Yellow (Yellow) 03/31/19 Unknown Urine Turbidity Clear (Clear) 03/31/19 Unknown Urine pH 6.0 (5.0-7.0) 03/31/19 Unknown Ur Specific [place] 1.016 (1.003-1.030) 03/31/19 Unknown Urine Protein <15 mg/dl mg/dL (Negative) 03/31/19 Unknown Urine Glucose (UA) Neg mg/dL (Negative) 03/31/19 Unknown Urine Ketones Neg mg/dL (Negative) 03/31/19 Unknown Urine Blood Neg (Negative) 03/31/19 Unknown Urine Nitrite Neg (Negative) 03/31/19 Unknown Urine Bilirubin Neg (Negative) 03/31/19 Unknown Urine Urobilinogen < 2.0 mg/dL (<2.0) 03/31/19 Unknown Ur Leukocyte Esterase Neg (Negative) 03/31/19 Unknown Urine WBC (Auto) 1.0 /HPF (0.0-6.0) 03/31/19 Unknown Urine RBC (Auto) 2.0 /HPF (0.0-6.0) 03/31/19 Unknown U Epithel Cells (Auto) 2.0 /HPF (0-13.0) 03/31/19 Unknown Urine Yeast (Budding) Few /HPF 03/31/19 Unknown Salicylates < 0.3 mg/dL (2.8-20.0) L 03/31/19 21:10 Urine Opiates Screen Presumptive negative 03/31/19 Unknown Urine Methadone Screen Presumptive negative 03/31/19 Unknown Acetaminophen < 5.0 ug/mL (10.0-30.0) L 03/31/19 21:10 Ur Barbiturates Screen Presumptive negative 03/31/19 Unknown Ur Phencyclidine Scrn Presumptive negative 03/31/19 Unknown Ur Amphetamines Screen Presumptive negative 03/31/19 Unknown U Benzodiazepines Scrn Presumptive negative 03/31/19 Unknown Urine Cocaine Screen Presumptive negative 03/31/19 Unknown U Marijuana (THC) Screen Presumptive negative 03/31/19 Unknown Drugs of Abuse Note Disclamer 03/31/19 Unknown Plasma/Serum Alcohol < 0.01 % (0-0.07) 03/31/19 21:10 Active Medications - Current Medications Current Medications: Generic Name Dose Route Start Last Admin Trade Name Freq PRN Reason Stop Dose Admin Acetaminophen 650 mg 04/01/19 04:00 Tylenol PO Q4H PRN Pain MILD(1-3)/Fever >100.5/SMITH Albuterol 2.5 mg 04/01/19 13:23 Proventil IH Q4HRT PRN Shortness Of Breath Enoxaparin Sodium 40 mg 04/01/19 10:00 04/03/19 09:26 Enoxaparin SUB-Q 40 mg QDAY@1000 RONEN Administration Sodium Chloride 1,000 mls @ 150 mls/hr 04/01/19 04:00 04/02/19 14:52 Nacl 0.9% 1000 Ml IV 150 mls/hr DIRECT RONEN Administration Ondansetron HCl 4 mg 04/01/19 04:00 Zofran IV Q8H PRN Nausea And Vomiting Sodium Chloride 10 ml 04/01/19 10:00 04/03/19 09:26 Sodium Chloride Flush Syringe 10 Ml IV 10 ml BID RONEN Administration Sodium Chloride 10 ml 04/01/19 04:00 Sodium Chloride Flush Syringe 10 Ml IV PRN PRN LINE FLUSH
[2019-04-03] MEDS: SODIUM CHLORIDE 0.9% 1000 ML 1,000 ML IV SCH ×2 (12:15→22:35)
--- NOTE | 2019-04-03 14:17 | Consultation ---
History of Present Illness - Reason for Consult Consult date: 04/03/19 Reason for consult: Overdose - Chief Complaint Chief complaint: "I kyra wanted to " - History of Present Psychiatric Illness The patient is a 29yo single unemployed AAF with history of Schizoaffective disorder, Polysubstance (Heroin, Meth) use disorder and Borderline PD. She was admitted to the medical floor via the ED after she presented with history of overdose of her prescribed medications (Geodon and Clonazepam) Psych consult requested to determine intent of overdose and recommend treatment. In my interview with the patient, she reports that she took the overdose because she was feeling depressed and suicidal. She continues to endorse being suicidal at present time and relates her depression and suicidality to distressing auditory hallucinations that tell her to kill herself. She denies HI/Paranoia. She admits abusing Heroin and Methamphetamine and claims that the last time she used was 2 weeks ago. PAST PSYCHIATRIC HISTORY: Diagnosed with Schizoaffective disorder, Polysubstance use disorder and Borderline PD. Multiple inpatient treatments Multiple suicide attempts. Follows up with the ACT Team FAMILY HISTORY: Unknown SOCIAL HISTORY: Patient lives in an Independent Living Facility. She is single, unemployed and has 10th Grade education She is on probation for criminal trespassing She has no gun access, per patient. REVIEW OF SYSTEMS Constitutional: Negative for weight loss ENT: Negative for stridor Respiratory: Negative for cough or hemoptysis All other systems reviewed and are negative Mental Status Exam Orientation: place, time and person Affect: anxious and depressed Mood: congruent with affect Thought content: auditory hallucinations and Suicidal thoughts Thought Process: Linear Perceptions: none Speech: coherent, loud Concentration: unable to pay attention Motor activity: Agitated Level of consciousness: Alert Memory: Intact Interaction: Cooperative Diagnoses: Methamphetamine use disorder, severe dependence Opioid use disorder, severe dependence Substance Induced Psychosis Schizoaffective disorder, depressive type Borderline PD RECOMMENDATIONS: MEDICATIONS: Will resume home meds which patient indicates are beneficial LEVELMAN: Yes DISPOSITION: Acute inpatient psychiatric hospitalization LEGAL STATUS: 1013 continued FOLLOW-UP: Will follow The patient agreed on the treatment plan, understood the risk, benefit, alternative treatment, potential consequence of no treatment, and gave informed consent. Please contact with any questions and/or concerns. Medications and Allergies Allergies Allergy/AdvReac Type Severity Reaction Status Date / Time orange Allergy Anaphylaxis Verified 01/26/18 08:42 trazodone Allergy Unknown Verified 03/31/19 23:41 Home Medications Medication Instructions Recorded Confirmed Last Taken Type OXcarbazepine [Trileptal] 300 mg PO BID 04/01/19 04/01/19 Unknown History Ziprasidone [Geodon] 60 mg PO BID 04/01/19 04/01/19 Unknown History clonazePAM [Klonopin] 1 mg PO HS 04/01/19 04/01/19 Unknown History Active Meds: Active Medications Acetaminophen (Tylenol) 650 mg PO Q4H PRN PRN Reason: Pain MILD(1-3)/Fever >100.5/SMITH Albuterol (Proventil) 2.5 mg IH Q4HRT PRN PRN Reason: Shortness Of Breath Enoxaparin Sodium (Enoxaparin) 40 mg SUB-Q QDAY@1000 RONEN Last Admin: 04/03/19 09:26 Dose: 40 mg Documented by: Sodium Chloride (Nacl 0.9% 1000 Ml) 1,000 mls @ 150 mls/hr IV DIRECT [facility] Last Admin: 04/03/19 12:15 Dose: 150 mls/hr Documented by: Lorazepam (Ativan) 1 mg PO Q4H PRN PRN Reason: Agitation Ondansetron HCl (Zofran) 4 mg IV Q8H PRN PRN Reason: Nausea And Vomiting Sodium Chloride (Sodium Chloride Flush Syringe 10 Ml) 10 ml IV BID [facility] Last Admin: 04/03/19 09:26 Dose: 10 ml Documented by: Sodium Chloride (Sodium Chloride Flush Syringe 10 Ml) 10 ml IV PRN PRN PRN Reason: LINE FLUSH Mental Status Exam - Vital signs Last Vital Signs Temp 99.3 F 04/03/19 12:01 Pulse 80 04/03/19 12:01 Resp 19 04/03/19 12:01 BP 118/57 04/03/19 12:01 Pulse Ox 95 04/03/19 12:01 Results Result Diagrams: 04/01/19 06:19 04/02/19 07:17 All other labs normal.
[2019-04-03] MEDS ORDERED: clonazePAM 0.5 MG TAB PO ONE (15:00)
[2019-04-03] MEDS: OXcarbazepine 300 MG TAB PO SCH ×2 (16:27→22:35)
[2019-04-03] MEDS: ZIPRASIDONE 60 MG CAP PO SCH ×2 (17:44→22:34)
[2019-04-03] MEDS ORDERED: NON-FORMULARY EACH (Clonazepam [Klonopin] 1 MG) PO SCH (22:00)
[2019-04-03] MEDS: clonazePAM 0.5 MG TAB PO SCH (22:34)
[2019-04-03] MEDS: ACETAMINOPHEN 325 MG TAB PO PRN (23:06)
[2019-04-04] MEDS: SODIUM CHLORIDE 0.9% 1000 ML 1,000 ML IV SCH (04:24)
[2019-04-04] MEDS: OXcarbazepine 300 MG TAB PO SCH ×2 (09:28→21:29)
[2019-04-04] MEDS: ZIPRASIDONE 60 MG CAP PO SCH ×2 (09:28→21:31)
[2019-04-04] MEDS: ENOXAPARIN 40 MG/0.4 ML INJ SUB-Q SCH (09:28)
[2019-04-04] MEDS: ZIPRASIDONE MESYLATE 20 MG VIAL IM PRN (09:49)
[2019-04-04] MEDS: WATER FOR INJ Sterile (PF) 10 ML ONE ×2 (09:49→22:18)
[2019-04-04] MEDS: LORazepam 1 MG TAB PO PRN ×2 (09:55→21:30)
--- NOTE | 2019-04-04 12:10 | Progress Note ---
Assessment and Plan Assessment and plan: 29-year-old woman with bipolar disease schizophrenia who presents to the hospital after suicidal attempts. She took 20 Geodon pills and 7 Klonopin. She was confused and altered when she came into the hospital, but is now improved. Drug overdose 2/2 suicidal attempt -cont 1013 -psych team following Acute toxic metabolic encephalopathy -2/2 drug overdose -resolved Schizoaffective disorder -mgx per psych team Disp: pt is medically clear for d/c. Discharge planning per the psych team History Interval history: Pt has no new complaints. It was reported that she was agitated overnight. Hospitalist Physical - Constitutional Vitals: Temp Pulse Resp BP Pulse Ox 98.1 F 83 18 106/62 96 04/03/19 23:03 04/03/19 23:08 04/03/19 23:03 04/03/19 23:03 04/03/19 23:08 General appearance: Present: no acute distress - EENT Eyes: Present: PERRL, EOM intact ENT: hearing intact, clear oral mucosa - Neck Neck: Present: supple - Respiratory Respiratory effort: normal Respiratory: bilateral: CTA - Cardiovascular Rhythm: regular Heart Sounds: Present: S1 & S2 - Extremities Extremity abnormal: edema (trace edema in BLE) - Abdominal General gastrointestinal: soft, non-tender, normal bowel sounds - Integumentary Integumentary: Present: warm, dry - Psychiatric Psychiatric: cooperative - Neurologic Neurologic: CNII-XII intact Results - Labs CBC & Chem 7: 04/01/19 06:19 12 07:17 Labs: Laboratory Last Values WBC 5.3 K/mm3 (4.5-11.0) 04/01/19 06:19 RBC 4.03 M/mm3 (3.65-5.03) 04/01/19 06:19 Hgb 12.0 gm/dl (10.1-14.3) 04/01/19 06:19 Hct 36.6 % (30.3-42.9) 04/01/19 06:19 MCV 91 fl (79-97) 04/01/19 06:19 MCH 30 pg (28-32) 04/01/19 06:19 MCHC 33 % (30-34) 04/01/19 06:19 RDW 13.7 % (13.2-15.2) 04/01/19 06:19 Plt Count 234 K/mm3 (140-440) 04/01/19 06:19 Lymph % (Auto) 37.3 % (13.4-35.0) H 04/01/19 06:19 [place] % (Auto) 13.3 % (0.0-7.3) H 04/01/19 06:19 Eos % (Auto) 3.4 % (0.0-4.3) 04/01/19 06:19 Baso % (Auto) 0.7 % (0.0-1.8) 04/01/19 06:19 Lymph # 2.0 K/mm3 (1.2-5.4) 04/01/19 06:19 [place] # 0.7 K/mm3 (0.0-0.8) 04/01/19 06:19 Eos # 0.2 K/mm3 (0.0-0.4) 04/01/19 06:19 Baso # 0.0 K/mm3 (0.0-0.1) 04/01/19 06:19 Seg Neutrophils % 45.3 % (40.0-70.0) 04/01/19 06:19 Seg Neutrophils # 2.4 K/mm3 (1.8-7.7) 04/01/19 06:19 Sodium 140 mmol/L (137-145) 04/02/19 07:17 Potassium 4.1 mmol/L (3.6-5.0) 04/02/19 07:17 Chloride 108.0 mmol/L (98-107) H 04/02/19 07:17 Carbon Dioxide 20 mmol/L (22-30) L 04/02/19 07:17 Anion Gap 16 mmol/L 04/02/19 07:17 BUN 9 mg/dL (7-17) 04/02/19 07:17 Creatinine 0.5 mg/dL (0.7-1.2) L 04/02/19 07:17 Estimated GFR > 60 ml/min 04/02/19 07:17 BUN/Creatinine Ratio 18 % 04/02/19 07:17 Glucose 93 mg/dL (65-100) 04/02/19 07:17 Calcium 8.4 mg/dL (8.4-10.2) 04/02/19 07:17 Phosphorus 3.30 mg/dL (2.5-4.5) 04/01/19 06:19 Magnesium 2.10 mg/dL (1.7-2.3) 04/01/19 06:19 Total Bilirubin 0.20 mg/dL (0.1-1.2) 03/31/19 21:10 AST 41 units/L (5-40) H 03/31/19 21:10 ALT 38 units/L (7-56) 03/31/19 21:10 Alkaline Phosphatase 44 units/L (35-129) 03/31/19 21:10 Total Protein 6.4 g/dL (6.3-8.2) 03/31/19 21:10 Albumin 3.8 g/dL (3.9-5) L 03/31/19 21:10 Albumin/Globulin Ratio 1.5 % 03/31/19 21:10 HCG, Qual Negative (Negative) 03/31/19 21:10 Urine Color Yellow (Yellow) 03/31/19 Unknown Urine Turbidity Clear (Clear) 03/31/19 Unknown Urine pH 6.0 (5.0-7.0) 03/31/19 Unknown Ur Specific [place] 1.016 (1.003-1.030) 03/31/19 Unknown Urine Protein <15 mg/dl mg/dL (Negative) 03/31/19 Unknown Urine Glucose (UA) Neg mg/dL (Negative) 03/31/19 Unknown Urine Ketones Neg mg/dL (Negative) 03/31/19 Unknown Urine Blood Neg (Negative) 03/31/19 Unknown Urine Nitrite Neg (Negative) 03/31/19 Unknown Urine Bilirubin Neg (Negative) 03/31/19 Unknown Urine Urobilinogen < 2.0 mg/dL (<2.0) 03/31/19 Unknown Ur Leukocyte Esterase Neg (Negative) 03/31/19 Unknown Urine WBC (Auto) 1.0 /HPF (0.0-6.0) 03/31/19 Unknown Urine RBC (Auto) 2.0 /HPF (0.0-6.0) 03/31/19 Unknown U Epithel Cells (Auto) 2.0 /HPF (0-13.0) 03/31/19 Unknown Urine Yeast (Budding) Few /HPF 03/31/19 Unknown Salicylates < 0.3 mg/dL (2.8-20.0) L 03/31/19 21:10 Urine Opiates Screen Presumptive negative 03/31/19 Unknown Urine Methadone Screen Presumptive negative 03/31/19 Unknown Acetaminophen < 5.0 ug/mL (10.0-30.0) L 03/31/19 21:10 Ur Barbiturates Screen Presumptive negative 03/31/19 Unknown Ur Phencyclidine Scrn Presumptive negative 03/31/19 Unknown Ur Amphetamines Screen Presumptive negative 03/31/19 Unknown U Benzodiazepines Scrn Presumptive negative 03/31/19 Unknown Urine Cocaine Screen Presumptive negative 03/31/19 Unknown U Marijuana (THC) Screen Presumptive negative 03/31/19 Unknown Drugs of Abuse Note Disclamer 03/31/19 Unknown Plasma/Serum Alcohol < 0.01 % (0-0.07) 03/31/19 21:10 Active Medications - Current Medications Current Medications: Generic Name Dose Route Start Last Admin Trade Name Freq PRN Reason Stop Dose Admin Acetaminophen 650 mg 04/01/19 04:00 04/03/19 23:06 Tylenol PO 650 mg Q4H PRN Administration Pain MILD(1-3)/Fever >100.5/SMITH Albuterol 2.5 mg 04/01/19 13:23 Proventil IH Q4HRT PRN Shortness Of Breath Clonazepam 1 mg 04/03/19 22:00 04/03/19 22:34 Klonopin PO 1 mg HS RONEN Administration Enoxaparin Sodium 40 mg 04/01/19 10:00 04/04/19 09:28 Enoxaparin SUB-Q 40 mg QDAY@1000 RONEN Administration Sodium Chloride 1,000 mls @ 150 mls/hr 04/01/19 04:00 04/04/19 04:24 Nacl 0.9% 1000 Ml IV 150 mls/hr DIRECT RONEN Administration Lorazepam 1 mg 04/03/19 13:27 04/04/19 09:55 Ativan PO 1 mg Q4H PRN Administration Agitation Oxcarbazepine 300 mg 04/03/19 15:00 04/04/19 09:28 Trileptal PO 300 mg BID RONEN Administration Sodium Chloride 10 ml 04/01/19 10:00 04/04/19 09:29 Sodium Chloride Flush Syringe 10 Ml IV 10 ml BID RONEN Administration Sodium Chloride 10 ml 04/01/19 04:00 Sodium Chloride Flush Syringe 10 Ml IV PRN PRN LINE FLUSH Ziprasidone 20 mg 04/03/19 14:20 Geodon IM Q8H PRN Agitation Ziprasidone 60 mg 04/03/19 16:00 04/04/19 09:28 Geodon PO 60 mg BID RONEN Administration
[2019-04-04] MEDS ORDERED: diphenhydrAMINE 50 MG/ML VIAL IM ONE (15:00)
[2019-04-04] MEDS ORDERED: LORazepam 2 MG/ML VIAL IM ONE (15:00)
[2019-04-04] MEDS ORDERED: HALOPERIDOL LACTATE 5 MG/1 ML INJ IM ONE (15:00)
[2019-04-04] MEDS: clonazePAM 0.5 MG TAB PO SCH (21:30)
--- NOTE | 2019-04-05 10:24 | Progress Note ---
Subjective - Reason for Consult Consult date: 04/05/19 Reason for consult: Psych follow up - Chief Complaint Chief complaint: Patient reviewed this morning. She was agitated, aggressive and required PRN medications yesterday, Security personnel called to her room last night as she was beginning to get agitated. She is calm and pleasant this morning. She describes good mood and denies SI/HI/AVH/Paranoia. She wants to continue on her current medications and promises to behave well so that she can be discharged home. REVIEW OF SYSTEMS Constitutional: Negative for weight loss ENT: Negative for stridor Respiratory: Negative for cough or hemoptysis All other systems reviewed and are negative Mental Status Exam Orientation: place, time and person Affect: better Mood: congruent with affect Thought content: denies SI/HI/AVH Thought Process: Linear Perceptions: none Speech: coherent Concentration: adequate Motor activity: WNL Level of consciousness: Alert Memory: Intact Interaction: Cooperative Diagnoses: Methamphetamine use disorder, severe dependence Opioid use disorder, severe dependence Substance Induced Psychosis Schizoaffective disorder, depressive type Borderline PD RECOMMENDATIONS: MEDICATIONS: Will continue home meds which patient indicates are beneficial SWATCH CUTTER: Yes DISPOSITION: Acute inpatient psychiatric hospitalization LEGAL STATUS: 1013 continued FOLLOW-UP: Will follow Will consider discharge home tomorrow am if she continues to do well The patient agreed on the treatment plan, understood the risk, benefit, alternative treatment, potential consequence of no treatment, and gave informed consent. Please contact with any questions and/or concerns. Mental Status Exam - Vital signs Last Vital Signs Temp 98.8 F 04/05/19 01:00 Pulse 88 04/05/19 05:00 Resp 18 04/05/19 01:00 BP 132/73 04/05/19 01:00 Pulse Ox 96 04/05/19 01:00
[2019-04-05] MEDS: OXcarbazepine 300 MG TAB PO SCH ×2 (11:11→21:28)
[2019-04-05] MEDS: ZIPRASIDONE 60 MG CAP PO SCH ×2 (11:12→21:34)
[2019-04-05] MEDS: ENOXAPARIN 40 MG/0.4 ML INJ SUB-Q SCH (11:16)
--- NOTE | 2019-04-05 14:37 | Progress Note ---
Assessment and Plan A/p Drug overdose 2/2 suicidal attempt -cont 1013 -psych team following Stable Acute toxic metabolic encephalopathy -2/2 drug overdose -resolved Schizoaffective disorder -mgx per psych team Disp: pt is medically cleared for d/c. Discharge planning per the psych team Subjective Date of service: 04/05/19 Principal diagnosis: Geodon and Klonopin Overdose Interval history: 29-year-old woman with bipolar disease schizophrenia who presents to the hospital after suicidal attempts. She took 20 Geodon pills and 7 Klonopin. She was confused and altered when she came into the hospital, but is now improved. Objective - Constitutional Vitals: Vital Signs - 12hr 04/05/19 04/05/19 05:00 12:00 Temperature 97.6 F Pulse Rate 88 88 Respiratory 16 Rate Blood Pressure 124/69 O2 Sat by Pulse 96 Oximetry - Labs CBC & Chem 7: 04/01/19 06:19 12 07:17
[2019-04-05] MEDS: clonazePAM 0.5 MG TAB PO SCH (21:29)
[2019-04-05] MEDS: LORazepam 1 MG TAB PO PRN (21:30)
[2019-04-05] MEDS: ACETAMINOPHEN 325 MG TAB PO PRN (21:32)
[2019-04-05] MEDS ORDERED: ONDANSETRON 4 MG/2 ML INJ IV PRN (21:33)
[2019-04-05] MEDS ORDERED: LORazepam 2 MG/ML VIAL IM ONE (22:00)
[2019-04-05] MEDS: ZIPRASIDONE MESYLATE 20 MG VIAL IM PRN (22:15)
--- NOTE | 2019-04-06 09:39 | Progress Note ---
Subjective - Reason for Consult Consult date: 04/06/19 Reason for consult: Psych follow up - Chief Complaint Chief complaint: Patient reviewed this morning. She is calm and pleasant this morning. She describes good mood and denies SI/HI/AVH/Paranoia. She feels safe going back home. She wants to continue on her current medications. She denies medication side effects. REVIEW OF SYSTEMS Constitutional: Negative for weight loss ENT: Negative for stridor Respiratory: Negative for cough or hemoptysis All other systems reviewed and are negative Mental Status Exam Orientation: place, time and person Affect: better Mood: congruent with affect Thought content: denies SI/HI/AVH Thought Process: Linear Perceptions: none Speech: coherent Concentration: adequate Motor activity: WNL Level of consciousness: Alert Memory: Intact Interaction: Cooperative Diagnoses: Methamphetamine use disorder, severe dependence Opioid use disorder, severe dependence Substance Induced Psychosis Schizoaffective disorder, depressive type Borderline PD RECOMMENDATIONS: MEDICATIONS: Please discharge home on Clonazepam 1mg qhs, Oxcarbamazepine 300mg bid and Geodon 60mg bid UNION REPRESENTATIVE: May discontinue DISPOSITION: Acute inpatient psychiatric hospitalization is not indicated at this time. May discharge home when medically stable LEGAL STATUS: 1013 discontinued FOLLOW-UP: Will sign off Please confirm outpatient resources. Patient reports that she follows with the ACT Team The patient agreed on the treatment plan, understood the risk, benefit, alte rnative treatment, potential consequence of no treatment, and gave informed consent. Please contact with any questions and/or concerns. Mental Status Exam - Vital signs Last Vital Signs Temp 98 F 04/06/19 05:45 Pulse 83 04/06/19 05:45 Resp 20 04/06/19 05:45 BP 111/72 04/06/19 05:45 Pulse Ox 98 04/06/19 05:45
[2019-04-06] MEDS: OXcarbazepine 300 MG TAB PO SCH (09:49)
[2019-04-06] MEDS: ZIPRASIDONE 60 MG CAP PO SCH (09:49)
--- NOTE | 2019-04-06 11:30 | Progress Note ---
Assessment and Plan Assessment and plan: Drug overdose 2/2 suicidal attempt -cont 1013 -psych team following Stable Acute toxic metabolic encephalopathy -2/2 drug overdose -resolved Schizoaffective disorder -mgx per psych team Disp: pt is medically cleared for d/c. Discharge planning per the psych team History Interval history: No new issues Hospitalist Physical - Constitutional Vitals: Temp Pulse Resp BP Pulse Ox 98 F 83 20 111/72 98 04/06/19 05:45 04/06/19 05:45 04/06/19 05:45 04/06/19 05:45 04/06/19 05:45 General appearance: Present: no acute distress - EENT Eyes: Present: PERRL, EOM intact ENT: hearing intact, clear oral mucosa, dentition normal - Neck Neck: Present: supple, normal ROM - Respiratory Respiratory effort: normal Respiratory: bilateral: CTA - Cardiovascular Rhythm: regular Heart Sounds: Present: S1 & S2. Absent: gallop, rub - Extremities Extremities: no ischemia, No edema, Full ROM - Abdominal General gastrointestinal: soft, non-tender, non-distended, normal bowel sounds - Integumentary Integumentary: Present: clear, warm, dry - Neurologic Neurologic: CNII-XII intact, moves all extremities Results - Labs CBC & Chem 7: 04/01/19 06:19 12 07:17 Labs: Laboratory Last Values WBC 5.3 K/mm3 (4.5-11.0) 04/01/19 06:19 RBC 4.03 M/mm3 (3.65-5.03) 04/01/19 06:19 Hgb 12.0 gm/dl (10.1-14.3) 04/01/19 06:19 Hct 36.6 % (30.3-42.9) 04/01/19 06:19 MCV 91 fl (79-97) 04/01/19 06:19 MCH 30 pg (28-32) 04/01/19 06:19 MCHC 33 % (30-34) 04/01/19 06:19 RDW 13.7 % (13.2-15.2) 04/01/19 06:19 Plt Count 234 K/mm3 (140-440) 04/01/19 06:19 Lymph % (Auto) 37.3 % (13.4-35.0) H 04/01/19 06:19 [place] % (Auto) 13.3 % (0.0-7.3) H 04/01/19 06:19 Eos % (Auto) 3.4 % (0.0-4.3) 04/01/19 06:19 Baso % (Auto) 0.7 % (0.0-1.8) 04/01/19 06:19 Lymph # 2.0 K/mm3 (1.2-5.4) 04/01/19 06:19 [place] # 0.7 K/mm3 (0.0-0.8) 04/01/19 06:19 Eos # 0.2 K/mm3 (0.0-0.4) 04/01/19 06:19 Baso # 0.0 K/mm3 (0.0-0.1) 04/01/19 06:19 Seg Neutrophils % 45.3 % (40.0-70.0) 04/01/19 06:19 Seg Neutrophils # 2.4 K/mm3 (1.8-7.7) 04/01/19 06:19 Sodium 140 mmol/L (137-145) 04/02/19 07:17 Potassium 4.1 mmol/L (3.6-5.0) 04/02/19 07:17 Chloride 108.0 mmol/L (98-107) H 04/02/19 07:17 Carbon Dioxide 20 mmol/L (22-30) L 04/02/19 07:17 Anion Gap 16 mmol/L 04/02/19 07:17 BUN 9 mg/dL (7-17) 04/02/19 07:17 Creatinine 0.5 mg/dL (0.7-1.2) L 04/02/19 07:17 Estimated GFR > 60 ml/min 04/02/19 07:17 BUN/Creatinine Ratio 18 % 04/02/19 07:17 Glucose 93 mg/dL (65-100) 04/02/19 07:17 Calcium 8.4 mg/dL (8.4-10.2) 04/02/19 07:17 Phosphorus 3.30 mg/dL (2.5-4.5) 04/01/19 06:19 Magnesium 2.10 mg/dL (1.7-2.3) 04/01/19 06:19 Total Bilirubin 0.20 mg/dL (0.1-1.2) 03/31/19 21:10 AST 41 units/L (5-40) H 03/31/19 21:10 ALT 38 units/L (7-56) 03/31/19 21:10 Alkaline Phosphatase 44 units/L (35-129) 03/31/19 21:10 Total Protein 6.4 g/dL (6.3-8.2) 03/31/19 21:10 Albumin 3.8 g/dL (3.9-5) L 03/31/19 21:10 Albumin/Globulin Ratio 1.5 % 03/31/19 21:10 HCG, Qual Negative (Negative) 04/05/19 22:35 Urine Color Yellow (Yellow) 03/31/19 Unknown Urine Turbidity Clear (Clear) 03/31/19 Unknown Urine pH 6.0 (5.0-7.0) 03/31/19 Unknown Ur Specific [place] 1.016 (1.003-1.030) 03/31/19 Unknown Urine Protein <15 mg/dl mg/dL (Negative) 03/31/19 Unknown Urine Glucose (UA) Neg mg/dL (Negative) 03/31/19 Unknown Urine Ketones Neg mg/dL (Negative) 03/31/19 Unknown Urine Blood Neg (Negative) 03/31/19 Unknown Urine Nitrite Neg (Negative) 03/31/19 Unknown Urine Bilirubin Neg (Negative) 03/31/19 Unknown Urine Urobilinogen < 2.0 mg/dL (<2.0) 03/31/19 Unknown Ur Leukocyte Esterase Neg (Negative) 03/31/19 Unknown Urine WBC (Auto) 1.0 /HPF (0.0-6.0) 03/31/19 Unknown Urine RBC (Auto) 2.0 /HPF (0.0-6.0) 03/31/19 Unknown U Epithel Cells (Auto) 2.0 /HPF (0-13.0) 03/31/19 Unknown Urine Yeast (Budding) Few /HPF 03/31/19 Unknown Salicylates < 0.3 mg/dL (2.8-20.0) L 03/31/19 21:10 Urine Opiates Screen Presumptive negative 03/31/19 Unknown Urine Methadone Screen Presumptive negative 03/31/19 Unknown Acetaminophen < 5.0 ug/mL (10.0-30.0) L 03/31/19 21:10 Ur Barbiturates Screen Presumptive negative 03/31/19 Unknown Ur Phencyclidine Scrn Presumptive negative 03/31/19 Unknown Ur Amphetamines Screen Presumptive negative 03/31/19 Unknown U Benzodiazepines Scrn Presumptive negative 03/31/19 Unknown Urine Cocaine Screen Presumptive negative 03/31/19 Unknown U Marijuana (THC) Screen Presumptive negative 03/31/19 Unknown Drugs of Abuse Note Disclamer 03/31/19 Unknown Plasma/Serum Alcohol < 0.01 % (0-0.07) 03/31/19 21:10 Active Medications - Current Medications Current Medications: Generic Name Dose Route Start Last Admin Trade Name Freq PRN Reason Stop Dose Admin Acetaminophen 650 mg 04/01/19 04:00 04/05/19 21:32 Tylenol PO 650 mg Q4H PRN Administration Pain MILD(1-3)/Fever >100.5/SMITH Albuterol 2.5 mg 04/01/19 13:23 Proventil IH Q4HRT PRN Shortness Of Breath Clonazepam 1 mg 04/03/19 22:00 04/05/19 21:29 Klonopin PO 1 mg HS RONEN Administration Enoxaparin Sodium 40 mg 04/01/19 10:00 04/05/19 11:16 Enoxaparin SUB-Q 40 mg QDAY@1000 RONEN Administration Sodium Chloride 1,000 mls @ 150 mls/hr 04/01/19 04:00 04/04/19 04:24 Nacl 0.9% 1000 Ml IV 150 mls/hr DIRECT RONEN Administration Lorazepam 1 mg 04/03/19 13:27 04/05/19 21:30 Ativan PO 1 mg Q4H PRN Administration Agitation Ondansetron HCl 4 mg 04/05/19 21:33 04/05/19 22:19 Zofran IV 4 mg Q4H PRN Administration Nausea And Vomiting Oxcarbazepine 300 mg 04/03/19 15:00 04/06/19 09:49 Trileptal PO 300 mg BID RONEN Administration Sodium Chloride 10 ml 04/01/19 10:00 04/06/19 09:53 Sodium Chloride Flush Syringe 10 Ml IV Not Given BID RONEN Sodium Chloride 10 ml 04/01/19 04:00 Sodium Chloride Flush Syringe 10 Ml IV PRN PRN LINE FLUSH Ziprasidone 20 mg 04/03/19 14:20 04/05/19 22:15 Geodon IM 20 mg Q8H PRN Administration Agitation Ziprasidone 60 mg 04/03/19 16:00 04/06/19 09:49 Geodon PO 60 mg BID RONEN Administration
--- NOTE | 2019-04-06 11:55 | Discharge Summary ---
Providers - Providers Date of Admission: 04/01/19 04:54 Date of discharge: 04/06/19 Attending physician: DANIELA VALENTE 04/02/19 12:27 Consult to Mental Health [CONS] Routine Reason For Exam: behavioral disturbance Place consult to:: [facility] Notified:: mental health Phone number called:: [phone] Was contact made?: Yes If yes, spoke with:: nicole Time called:: 13:33 Primary care physician: MEAT LUGGER Hospitalization Reason for admission: Suicide attempt Condition: Stable Hospital course: 29-year-old woman with bipolar disease schizophrenia who presented to the hospital after suicidal attempts. She took 20 Geodon pills and 7 Klonopin. She was confused and altered when she came into the hospital, but quickly improved back to her baseline mental status. Patient was placed on 1013. Patient was admitted with diagnosis of suicide attempt, intentional drug overdose, acute toxic metabolic encephalopathy and schizoaffective disorder. Patient was evaluated by psychiatry team who recommended patient to the hospital stay and eventually rescinded 1013 today. Psychiatrist felt that Acute inpatient p sychiatric hospitalization is not indicated at this time and may discharge home. Psychiatry recommended Clonazepam 1mg qhs, Oxcarbamazepine 300mg bid and Geodon 60mg bid. Patient reports that she follows with the ACT Team. Dedicated discharge time 32 minutes. Disposition: TO HOME OR SELFCARE Time spent for discharge: 32 - Discharge Diagnoses (1) Toxic metabolic encephalopathy Status: Acute (2) Schizoaffective disorder, depressive type Status: Acute (3) Overdose Status: Acute Qualifiers: Encounter type: initial encounter Injury intent: intentional self-harm Qualified Code(s): T50.902A - Poisoning by unspecified drugs, medicaments and biological substances, intentional self-harm, initial encounter (4) Suicidal overdose Status: Acute Qualifiers: Encounter type: initial encounter Qualified Code(s): T50.902A - Poisoning by unspecified drugs, medicaments and biological substances, intentional self- harm, initial encounter (5) Seizure disorder Status: Acute Core Measure Documentation - Palliative Care Palliative Care/ Comfort Measures: Not Applicable - Core Measures Any of the following diagnoses?: none Exam - Constitutional Vitals: Temp Pulse Resp BP Pulse Ox 98 F 83 20 111/72 98 04/06/19 05:45 04/06/19 05:45 04/06/19 05:45 04/06/19 05:45 04/06/19 05:45 General appearance: Present: no acute distress, well-nourished - EENT Eyes: Present: PERRL ENT: hearing intact, clear oral mucosa - Neck Neck: Present: supple, normal ROM - Respiratory Respiratory effort: normal Respiratory: bilateral: CTA - Cardiovascular Heart Sounds: Present: S1 & S2. Absent: rub, click - Extremities Extremities: pulses symmetrical, No edema Peripheral Pulses: within normal limits - Abdominal General gastrointestinal: Present: soft, non-tender, non-distended, normal bowel sounds Female genitourinary: Present: normal - Integumentary Integumentary: Present: clear, warm, dry - Musculoskeletal Musculoskeletal: gait normal, strength equal bilaterally - Psychiatric Psychiatric: appropriate mood/affect, intact judgment & insight - Neurologic Neurologic: CNII-XII intact, moves all extremities Plan Activity: no restrictions Weight Bearing Status: Weight Bear as Tolerated Diet: regular Follow up with: PRIMARY MD PASQUALE [Primary Care Provider] - 3-5 Days MALVIN SULLIVAN MD [Staff Physician] - 7 Days Prescriptions: Ziprasidone [Geodon] 60 mg PO BID #60 cap clonazePAM [Klonopin] 1 mg PO HS #30 tab OXcarbazepine [Trileptal] 300 mg PO BID #60 tab
[2019-04-06 11:57] VITALS: BP 111/69
[2019-04-06] MEDS: ENOXAPARIN 40 MG/0.4 ML INJ SUB-Q SCH (12:48)
== END 2019-04-06 12:40 | disposition home or self-care (01) | DRG 917 ==
LOC: ED 20:14 → 4A 04-01 04:54 → 3A 04-03 17:53
PROVIDERS: ADMIT Internal Medicine; ATTEND Hospitalist
DX: T43.592A Poisoning by other antipsychotics and neuroleptics, intentional self-harm, initial encounter (principal); G92 Toxic encephalopathy; F11.20 Opioid dependence, uncomplicated; F15.20 Other stimulant dependence, uncomplicated; F60.3 Borderline personality disorder; F25.1 Schizoaffective disorder, depressive type; G40.909 Epilepsy, unspecified, not intractable, without status epilepticus; F19.10 Other psychoactive substance abuse, uncomplicated; J45.909 Unspecified asthma, uncomplicated; I95.9 Hypotension, unspecified; Z91.018 Allergy to other foods; Z88.8 Allergy status to other drugs, medicaments and biological substances; Z79.899 Other long term (current) drug therapy; Y92.89 Other specified places as the place of occurrence of the external cause; Z91.5 Personal history of self-harm
CPT/HCPCS: 36415; 80048; 80053; 80307; 80320; 81001; 83735; 84100; 84703; 85025; 93005; 93010; 94640; 96360; 96361; G0378; G0480; J1200; J1630; J1650; J2060; J2405; J3486; J7030

== ENCOUNTER 2019-05-02 20:40 | Emergency (ER) | payer SELFPAY ==
--- NOTE | 2019-05-02 20:59 | Emergency Department Report ---
<JESSICA MEJIA - Last Filed: 05/04/19 11:08> ED Psych HPI - General Chief Complaint: Psych Stated Complaint: SI/MH EVAL Time Seen by Provider: 05/02/19 20:49 - Related Data Home Medications Medication Instructions Recorded Confirmed Last Taken ARIPiprazole [Abilify] 10 mg PO QHS 05/02/19 05/02/19 Unknown levETIRAcetam [Keppra TAB] 1,000 mg PO QHS 05/02/19 05/02/19 Unknown Previous Rx's Medication Instructions Recorded Last Taken Type clonazePAM [Klonopin] 1 mg PO HS #30 tab 04/06/19 Unknown Rx Allergies Allergy/AdvReac Type Severity Reaction Status Date / Time orange Allergy Anaphylaxis Verified 01/26/18 08:42 trazodone Allergy Unknown Verified 03/31/19 23:41 ED Past Medical Hx - Medications Home Medications: Home Medications Medication Instructions Recorded Confirmed Last Taken Type clonazePAM [Klonopin] 1 mg PO HS #30 tab 04/06/19 05/02/19 Unknown Rx ARIPiprazole [Abilify] 10 mg PO QHS 05/02/19 05/02/19 Unknown History levETIRAcetam [Keppra TAB] 1,000 mg PO QHS 05/02/19 05/02/19 Unknown History ED Course - Reevaluation(s) Reevaluation #2: 05/04/19 11:08 Review the patient's laboratory studies. The patient is medically clear from an emergency standpoint and without mental health issues would be able to be discharged home. Since the patient did test positive for influenza B patient likely will be able to be accepted at a mental health facility after the patient is fever free for 24 hours. ED Medical Decision Making - Lab Data Result diagrams: 05/02/19 21:22 05/02/19 21:22 ED Disposition Clinical Impression: Schizoaffective disorder, depressive type, Suicidal ideation, Suicidal overdose, Influenza B, Medical clearance for psychiatric admission Disposition: [id number]/TX-65 PSY HOSP/PSY UNIT Condition: Stable Referrals: PRIMARY CARE, [Primary Care Provider] - 3-5 Days <MARYJO LOU - Last Filed: 05/06/19 06:05> ED Course - Reevaluation(s) Reevaluation #1: 05/03/19 09:14 pt brought to my attention by nurse due to recurrent and increasing fever. Patient has had a negative chest x-ray and UA. Pt c/o flulike symptoms. Flu and Strep test performed. Influenza B was positive. Patient provided a mask, Tamiflu will be started, when necessary Zofran, Motrin, and Tylenol will be ordered. ED Medical Decision Making - Lab Data Result diagrams: 05/02/19 21:22 05/02/19 21:22 <RONEN SHOEMAKER - Last Filed: 05/07/19 17:12> ED Psych HPI - General Source: patient, EMS Mode of arrival: Ambulatory - History of Present Illness Initial Comments: Patient is 29 years old female with history of schizoaffective disorder. Patient presented to the ER complaining of depression and suicidal thoughts. Patient stated that she is planning to overdose on medication and she will cut her wrist. Patient denied any visual or due to hallucination. No homicidal ideation. MD Complaint: suicidal ideation, feels depressed -: days(s) Associated Psychiatric Symptoms: depression, suicidal ideation, racing thoughts History of same: Yes Quality: constant Associated Symptoms: denies other symptoms Treatments Prior to Arrival: none If Self Harm: admits thoughts of, has plan, intentional overdose, self-inflicted trauma ED Review of Systems Comment: All other systems reviewed and negative Constitutional: denies: chills, fever Respiratory: cough. denies: shortness of breath, SOB with exertion Cardiovascular: denies: chest pain, palpitations Gastrointestinal: denies: abdominal pain, nausea, vomiting Musculoskeletal: denies: back pain Neurological: denies: headache, weakness, numbness, paresthesias, confusion, abnormal gait ED Past Medical Hx - Past Medical History Hx Hypertension: Yes Hx Congestive Heart Failure: No Hx Diabetes: No Hx Seizures: Yes Hx Psychiatric Treatment: Yes (Bipolar, Schizoaffective Disorder) Hx Asthma: Yes Hx COPD: No - Surgical History Past Surgical History?: Yes Additional Surgical History: Left hand - Social History Smoking Status: Current Some Day Smoker Substance Use Type: Marijuana, Prescribed ED Physical Exam - General Limitations: No Limitations General appearance: alert, in no apparent distress - Head Head exam: Present: atraumatic, normocephalic, normal inspection - Eye Eye exam: Present: normal appearance - ENT ENT exam: Present: normal exam, normal orophraynx, mucous membranes moist - Neck Neck exam: Present: normal inspection, full ROM. Absent: tenderness, meningismus, lymphadenopathy, thyromegaly - Respiratory Respiratory exam: Present: normal lung sounds bilaterally - Cardiovascular Cardiovascular Exam: Present: regular rate, normal rhythm, normal heart sounds - GI/Abdominal GI/Abdominal exam: Present: soft, normal bowel sounds. Absent: distended, tenderness, guarding, rebound, rigid, organomegaly, mass, bruit, pulsatile mass, hernia - Extremities Exam Extremities exam: Present: normal inspection, full ROM, normal capillary refill. Absent: pedal edema, calf tenderness - Back Exam Back exam: Present: normal inspection, full ROM. Absent: tenderness, CVA tenderness (R), CVA tenderness (L), muscle spasm, paraspinal tenderness, vertebral tenderness - Neurological Exam Neurological exam: Present: alert, oriented X3, CN II-XII intact - Psychiatric Psychiatric exam: Present: depressed, suicidal ideation. Absent: agitated, flat affect, manic, homicidal ideation - Skin Skin exam: Present: warm, intact, normal color ED Medical Decision Making - Lab Data Result diagrams: 05/02/19 21:22 05/02/19 21:22 <ALTAF NAM - Last Filed: 05/10/19 20:09> ED Review of Systems ROS: Stated complaint: SI/MH EVAL Other details as noted in HPI ED Course Vital Signs 05/02/19 05/03/19 05/03/19 20:43 02:16 07:57 Temperature 100.2 F H 98.4 F 102.1 F H Pulse Rate 91 H 83 82 Respiratory 20 18 22 Rate Blood Pressure 103/62 Blood Pressure [Left] Blood Pressure 108/53 101/62 [Right] O2 Sat by Pulse 100 95 96 Oximetry 05/03/19 05/03/19 05/04/19 11:26 20:12 01:25 Temperature 99.5 F 100.6 F H 103.2 F H Pulse Rate 83 85 97 H Respiratory 16 18 18 Rate Blood Pressure Blood Pressure [Left] Blood Pressure 94/62 106/68 110/67 [Right] O2 Sat by Pulse 96 95 Oximetry 05/04/19 05/04/19 05/04/19 12:29 13:00 20:34 Temperature 98.2 F 98.0 F 99.6 F Pulse Rate 95 H 83 92 H Respiratory 18 18 20 Rate Blood Pressure Blood Pressure [Left] Blood Pressure 97/54 130/68 99/66 [Right] O2 Sat by Pulse 100 100 96 Oximetry 05/05/19 05/05/19 05/05/19 01:28 08:06 13:00 Temperature 98.6 F 99.2 F 99.5 F Pulse Rate 77 89 85 Respiratory 18 18 20 Rate Blood Pressure Blood Pressure 101/59 95/67 104/65 [Left] Blood Pressure [Right] O2 Sat by Pulse 100 98 97 Oximetry 05/06/19 05/06/19 05/06/19 02:01 07:43 09:11 Temperature 100.9 F H 100.2 F H Pulse Rate 90 66 100 H Respiratory 20 20 10 L Rate Blood Pressure Blood Pressure 103/51 110/82 131/98 [Left] Blood Pressure [Right] O2 Sat by Pulse 94 97 95 Oximetry 05/06/19 05/06/19 05/06/19 09:20 09:45 10:00 Temperature Pulse Rate 100 H 85 69 Respiratory 10 L 19 14 Rate Blood Pressure Blood Pressure 149/89 104/70 110/66 [Left] Blood Pressure [Right] O2 Sat by Pulse 100 92 96 Oximetry 05/06/19 05/06/19 05/06/19 10:30 11:00 12:04 Temperature Pulse Rate 70 67 76 Respiratory 16 20 13 Rate Blood Pressure Blood Pressure 97/61 106/61 103/70 [Left] Blood Pressure [Right] O2 Sat by Pulse 96 98 99 Oximetry 05/06/19 05/06/19 05/06/19 12:06 13:51 19:10 Temperature 99.4 F 99.0 F Pulse Rate 70 108 H 79 Respiratory 13 18 18 Rate Blood Pressure Blood Pressure 101/64 95/74 100/60 [Left] Blood Pressure [Right] O2 Sat by Pulse 98 99 98 Oximetry 05/07/19 05/07/19 05/07/19 02:00 03:17 09:31 Temperature 98.9 F 97.8 F Pulse Rate 74 74 Respiratory 18 16 Rate Blood Pressure Blood Pressure 102/64 105/64 [Left] Blood Pressure [Right] O2 Sat by Pulse 99 99 98 Oximetry 05/07/19 05/07/19 05/07/19 14:03 19:00 19:30 Temperature 99.3 F 98.5 F Pulse Rate 85 79 Respiratory 18 18 18 Rate Blood Pressure Blood Pressure 105/67 101/66 [Left] Blood Pressure [Right] O2 Sat by Pulse 98 98 98 Oximetry 05/07/19 05/07/19 05/08/19 21:48 22:48 02:10 Temperature 98.7 F Pulse Rate 69 Respiratory 20 18 18 Rate Blood Pressure Blood Pressure 101/69 [Left] Blood Pressure [Right] O2 Sat by Pulse 98 Oximetry 05/08/19 05/08/19 05/08/19 05:00 08:00 20:20 Temperature 98.3 F 98.2 F Pulse Rate 63 75 Respiratory 20 18 18 Rate Blood Pressure Blood Pressure 96/62 96/53 [Left] Blood Pressure [Right] O2 Sat by Pulse 99 98 Oximetry - Reevaluation(s) Reevaluation #3: 05/04/19 18:13 I was advised by nursing staff that the patient had recently been diagnosed with the flu, nursing staff states that patient is feeling congestion and has a dry cough, she is asking for something for the cough and congestion, patient only has allergies to [place] and trazodone, her vitals are stable, will put an order for Robitussin DM. ED Medical Decision Making - Lab Data Result diagrams: 05/02/19 21:22 05/02/19 21:22 Critical care attestation.: If time is entered above; I have spent that time in minutes in the direct care of this critically ill patient, excluding procedure time. ED Disposition Is pt being admited?: No Does the pt Need Aspirin: No
[2019-05-02 21:23] LABS: Bilirubin,Urine NEG (Negative); Blood,Urine NEG (Negative); Color,Urine Yellow (Yellow); Mucus,Urine FEW /HPF; Protein,Urine <15 mg/dL mg/dL (Negative); Urobilinogen,Urine < 2.0 mg/dL (<2.0); WBC,Urine < 1.0 /HPF (0.0-6.0)
[2019-05-02 21:31] LABS: Amphetamine Screen,Urine PRESUMPTIVE NEGATIVE; Benzodiazepines Screen,Urine PRESUMPTIVE NEGATIVE; Cannabinoid Screen,Urine PRESUMPTIVE NEGATIVE; Cocaine Screen,Urine PRESUMPTIVE NEGATIVE; Methadone Screen,Urine PRESUMPTIVE NEGATIVE; Opiate Screen,Urine PRESUMPTIVE NEGATIVE
[2019-05-02 21:33] LABS: Hematocrit 37.6 % (30.3-42.9); Hemoglobin 12.5 gm/dl (10.1-14.3); Mean Corpuscular HGB Conc 33 % (30-34); Mean Corpuscular Volume 90 fl (79-97); Platelet Count 248 K/mm3 (140-440); Red Blood Count 4.19 M/mm3 (3.65-5.03); Red Cell Distribution Width 13.7 % (13.2-15.2)
[2019-05-02 21:56] LABS: BUN/Creatinine Ratio 18; Blood Urea Nitrogen 16 mg/dL (7-17); Calcium 9.6 mg/dL (8.4-10.2); Hemolysis Index 2
[2019-05-02] MEDS ORDERED: ACETAMINOPHEN 500 MG TAB PO ONE (22:24)
[2019-05-02 22:34] LABS: Basophils % (Manual) 0 % (0.0-1.8); Eosinophils % (Manual) 0 % (0.0-4.3); Total Cells Counted 100
[2019-05-02 22:35] LABS: RBC Morphology Normal
--- NOTE | 2019-05-02 23:25 | XRay Report ---
CHEST 2 VIEWS, 05/02/2019 10:39 PM INDICATION: Cough COMPARISON: Chest radiograph, 01/21/2018 FINDINGS: Support devices: None Heart: The heart appears normal in size. Lungs/pleura: The lungs are clear of focal airspace disease or significant pleural effusion. Additional findings: None IMPRESSION: 1. No evidence of acute cardiopulmonary process. Signer Name: Lisette Jackson MD Signed: 05/02/2019 11:20 PM Workstation Name: [id number]
[2019-05-03] MEDS ORDERED: ACETAMINOPHEN 500 MG TAB PO ONE (08:09)
[2019-05-03] MEDS ORDERED: ONDANSETRON 4 MG ODT TAB PO PRN (09:17)
[2019-05-03] MEDS: OSELTAMIVIR 75 MG CAP PO SCH ×2 (10:40→23:38)
[2019-05-03] MEDS: IBUPROFEN 800 MG TAB PO PRN (15:52)
[2019-05-03] MEDS ORDERED: ZIPRASIDONE 20 MG CAP PO ONE (16:19)
[2019-05-03] MEDS: ACETAMINOPHEN 500 MG TAB PO PRN (20:30)
[2019-05-03] MEDS: clonazePAM 0.5 MG TAB PO SCH (23:38)
[2019-05-03] MEDS: OXcarbazepine 150 MG TAB PO SCH (23:38)
[2019-05-03] MEDS: ZIPRASIDONE 60 MG CAP PO SCH (23:38)
[2019-05-04] MEDS: IBUPROFEN 800 MG TAB PO PRN (04:12)
[2019-05-04] MEDS ORDERED: ZIPRASIDONE MESYLATE 20 MG VIAL IM ONE ×2 (10:56→11:33)
[2019-05-04] MEDS: ZIPRASIDONE 60 MG CAP PO SCH (11:06)
[2019-05-04] MEDS: clonazePAM 0.5 MG TAB PO SCH ×2 (11:30→23:00)
[2019-05-04] MEDS: OSELTAMIVIR 75 MG CAP PO SCH ×2 (11:30→23:00)
[2019-05-04] MEDS: OXcarbazepine 150 MG TAB PO SCH (11:46)
--- NOTE | 2019-05-04 14:13 | Consultation ---
History of Present Illness - Reason for Consult Consult date: 05/04/19 Reason for consult: psychiatric assessment - Chief Complaint Chief complaint: Per patient chart, Pt with increased agitation, yelling out at staff stating "Im ready to go", slamming the door to room, threatening to hit nurse, DEBBIE Palma, unable to redirect at this time, meds given as ordered. Ms zhang is a 29 years old female. she is aaox3. she reports coming to the hospital for behavioral issues, she staes, " I have been feeling suicidal for a couple of months, ans actually try to overdose on my medications.. she reports that the SI thoughts comes and go. she reports hearing voices. the voices are telling her to fight Cody, when asked who is Ross she states, "its a girl that I keep seeing all the time". she reports eating and sleeping well. The patient reports feeling depressed, she refused to take geodon, stating, "it lowers the seizure threshold, clients wants to placed back of abilify 10mg that she takes daily. PAST PSYCHIATRIC HISTORY: Diagnoses: suicidal attempt Suicide attempts or Self-harm behavior: yes Prior psychiatric hospitalizations: yes Substance Abuse history:yes Previous psychiatric medications tried: yes Outpatient treatment:yes PAST MEDICAL HISTORY: seizure Family Psychiatric History None reported or documented SOCIAL HISTORY Marital Status:single Living Arrangements: [facility] Employment Status: unemployed Access to guns/weapons: no Education: [employer] History of Abuse:no Legal History: yes ROS: Constitutional: Negative for weight loss ENT: Negative for stridor Respiratory: Negative for cough or hemoptysis All other systems reviewed and are negative MENTAL STATUS General Appearance and Behavior: age appropriate, good eye contact, cooperative with questioning and polite Cooperation: Cooperative Psychomotor Behavior: within normal limits Mood: OK Affect and affective range: Congruent with stated mood Thought Process: Fluent/Logical and Goal-directed Thought Content: Within reality Speech: Normal volume and Regular rate and rhythm Intellectual Functioning Average Suicidal Ideation: at times Homicidal Ideation: Denies HI Impulse Control: intact Insight and Judgment: normal insight and judgment Memory: Normal Attention: Normal Orientation: alert and oriented RECOMMENDATIONS MEDICATIONS: start abilify 10mg daily and haldol 5mg im q6 prn agitation d/c geodon 60mg Risks, benefits and alternatives of medications discussed with the patient, questions answered and consent obtained from patient. PSYCHOTHERAPY: Supportive psychotherapy provided MEDICAL: Per primary team DELIRIUM PRECAUTIONS: Please re-orient patient frequently, keep lights on during the day, and minimize benzodiazepines and opiates as these medications could worsen patient's confusion. 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 for higher level of care LEGAL STATUS: involuntary FOLLOW-UP: Will follow Medications and Allergies Allergies Allergy/AdvReac Type Severity Reaction Status Date / Time orange Allergy Anaphylaxis Verified 01/26/18 08:42 trazodone Allergy Unknown Verified 03/31/19 23:41 Home Medications Medication Instructions Recorded Confirmed Last Taken Type clonazePAM [Klonopin] 1 mg PO HS #30 tab 04/06/19 05/02/19 Unknown Rx ARIPiprazole [Abilify] 10 mg PO QHS 05/02/19 05/02/19 Unknown History levETIRAcetam [Keppra TAB] 1,000 mg PO QHS 05/02/19 05/02/19 Unknown History Active Meds: Active Medications Acetaminophen (Tylenol) 1,000 mg PO Q6HR PRN PRN Reason: Fever >101 Last Admin: 05/03/19 20:30 Dose: 1,000 mg Documented by: Clonazepam (Klonopin) 1 mg PO BID [facility] Last Admin: 05/04/19 11:30 Dose: 1 mg Documented by: Ibuprofen (Ibuprofen) 800 mg PO Q8HR PRN PRN Reason: Fever >101 Last Admin: 05/04/19 04:12 Dose: 800 mg Documented by: Levetiracetam (Keppra) 1,000 mg PO [facility] Ondansetron HCl (Zofran Odt) 4 mg PO Q6HR PRN PRN Reason: Nausea And Vomiting Last Admin: 05/03/19 09:30 Dose: 4 mg Documented by: Oseltamivir Phosphate (Tamiflu) 75 mg PO BID [facility] Stop: 05/07/19 22:01 Last Admin: 05/04/19 11:30 Dose: 75 mg Documented by: Oxcarbazepine (Trileptal) 300 mg PO BID [facility] Last Admin: 05/04/19 11:46 Dose: Not Given Documented by: Ziprasidone (Geodon) 60 mg PO BID [facility] Last Admin: 05/04/19 11:06 Dose: Not Given Documented by: Mental Status Exam - Vital signs Last Vital Signs Temp 98.2 F 05/04/19 12:29 Pulse 95 H 05/04/19 12:29 Resp 18 05/04/19 12:29 BP 97/54 05/04/19 12:29 Pulse Ox 100 05/04/19 12:29 Results Result Diagrams: 05/02/19 21:22 05/02/19 21:22 All other labs normal.
[2019-05-04] MEDS ORDERED: HALOPERIDOL LACTATE 5 MG/1 ML INJ IM PRN (15:17)
[2019-05-04] MEDS: ACETAMINOPHEN 500 MG TAB PO PRN (17:30)
[2019-05-04] MEDS ORDERED: guaiFENesin DM 200/20 MG ORAL LIQD 10 ML PO ONE (18:12)
[2019-05-04] MEDS: levETIRAcetam 500 MG TAB PO SCH (23:00)
[2019-05-05] MEDS: ACETAMINOPHEN 500 MG TAB PO PRN (09:12)
[2019-05-05] MEDS ORDERED: ARIPiprazole 10 MG TAB PO SCH (10:00)
[2019-05-05] MEDS: clonazePAM 0.5 MG TAB PO SCH (10:55)
[2019-05-05] MEDS: OSELTAMIVIR 75 MG CAP PO SCH (10:55)
--- NOTE | 2019-05-05 14:28 | Progress Note ---
Subjective - Reason for Consult Consult date: 05/05/19 Reason for consult: suicidal ideation with plan - Chief Complaint Chief complaint: During my interview of the patient this morning she is lying down. Awake. A/o x 3. Disheveled. Good eye contact. Calm and cooperative. 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 She says she hear voices "telling her to hurt herself and trying to fight her." She calls the lady "marlee" and says she's the person "who tires to fight me." Ms. Mcallister says she's feeling suicidal as we speak and says "if she doesn't get the help she needs she will go home and commit suicide by hanging myself or overdosing." She says she doesn't sleep well at night because "Marlee does things to her." ROS: Constitutional: Negative for weight loss ENT: Negative for stridor Respiratory: Negative for cough or hemoptysis All other systems reviewed and are negative MENTAL STATUS General Appearance and Behavior: age appropriate, good eye contact, cooperative with questioning and polite Cooperation: Pleasant, calm and cooperative Mood: Depressed OK Affect and affective range: Congruent with stated mood Thought Process: Goal-directed Thought Content Suicidal Ideation: "yes, will hang myself or overdose" Homicidal Ideation: Denies HI Delusions: yes Insight and Judgment: Fair Cognition: Oriented Assessment: Schozoaffective Disorder RECOMMENDATIONS Continue prescribed medications Risks, benefits and alternatives of medications discussed with the patient, questions answered and consent obtained from patient. PSYCHOTHERAPY: Supportive psychotherapy provided MEDICAL: Per primary team DELIRIUM PRECAUTIONS: Please re-orient patient frequently, keep lights on during the day, and minimize benzodiazepines and opiates as these medications could worsen patient's confusion. QUOTATION CHECKER: Defer to primary DISPOSITION: transfer to acute psychiatric facility when medically stable FOLLOW-UP: Will follow Mental Status Exam - Vital signs Last Vital Signs Temp 99.2 F 05/05/19 08:06 Pulse 89 05/05/19 08:06 Resp 18 05/05/19 08:06 BP 95/67 05/05/19 08:06 Pulse Ox 98 05/05/19 08:06
[2019-05-05] MEDS ORDERED: guaiFENesin DM 200/20 MG ORAL LIQD 10 ML ONE (18:12)
[2019-05-05] MEDS ORDERED: guaiFENesin DM 200/20 MG ORAL LIQD 10 ML PO ONE (18:24)
[2019-05-06] MEDS: levETIRAcetam 500 MG TAB PO SCH ×2 (01:52→22:33)
[2019-05-06] MEDS: clonazePAM 0.5 MG TAB PO SCH ×3 (01:52→22:39)
[2019-05-06] MEDS: OSELTAMIVIR 75 MG CAP PO SCH ×3 (01:52→22:40)
[2019-05-06] MEDS ORDERED: diphenhydrAMINE 50 MG/ML VIAL IM ONE (08:04)
[2019-05-06] MEDS ORDERED: LORazepam 2 MG/ML VIAL IM ONE (08:04)
[2019-05-06] MEDS ORDERED: LORazepam 2 MG/ML VIAL ONE (08:07)
[2019-05-06] MEDS ORDERED: KETAMINE 500 MG/5 ML VIAL MDV ONE (08:58)
[2019-05-06] MEDS ORDERED: KETAMINE 500 MG/5 ML VIAL MDV IM ONE (09:02)
--- NOTE | 2019-05-06 09:38 | Emergency Department Report ---
Blank Doc - Documentation Documentation: At 0938 05/06/19 patient hostile aggressive yelling and cursing at staff. Thre atening staff. Patient given ketamine for acute agitation and being threatening uncontrollable in the ER. no complications. Patient stable on monitor. Will contiue to monitor.
--- NOTE | 2019-05-06 11:13 | Progress Note ---
Subjective - Reason for Consult Consult date: 05/06/19 Reason for consult: SI - Chief Complaint Chief complaint: Reviewed the patient's medical records and discussed the patient's progress with nursing staff. The nurse states the patient was physically aggressive, yelling and walking up to her in an aggressive manner. She states the patient was given B25, but it did not calm her down. The nurse says the patient had to be given Ketamine to calm her down. Attempted to interview the patient this morning. She was lying on cart. Dressed appropriately. The patient was somnolent. ROS: Unable to assess due to somnolence MENTAL STATUS General Appearance and Behavior: Dressed appropriate. Somnolent. Unable to assess mental status due to somnolence Assessment: Schozoaffective Disorder RECOMMENDATIONS Increased Abilify to 15mg po daily Continue 1013 Risks, benefits and alternatives of medications discussed with the patient, questions answered and consent obtained from patient. PSYCHOTHERAPY: Supportive psychotherapy provided MEDICAL: Per primary team DELIRIUM PRECAUTIONS: Please re-orient patient frequently, keep lights on during the day, and minimize benzodiazepines and opiates as these medications could worsen patient's confusion. HOT WALKER: Defer to primary DISPOSITION: transfer to acute psychiatric facility when medically stable FOLLOW-UP: Will follow until transferred Mental Status Exam - Vital signs Last Vital Signs Temp 100.2 F H 05/06/19 07:43 Pulse 66 05/06/19 07:43 Resp 20 05/06/19 07:43 BP 110/82 05/06/19 07:43 Pulse Ox 97 05/06/19 07:43
[2019-05-06] MEDS: ARIPiprazole 15 MG TAB PO SCH (17:00)
[2019-05-07] MEDS: ARIPiprazole 15 MG TAB PO SCH (10:06)
[2019-05-07] MEDS: clonazePAM 0.5 MG TAB PO SCH ×2 (10:06→21:47)
[2019-05-07] MEDS: OSELTAMIVIR 75 MG CAP PO SCH ×2 (10:31→21:48)
--- NOTE | 2019-05-07 10:35 | Progress Note ---
Subjective - Reason for Consult Consult date: 05/07/19 Reason for consult: SI - Chief Complaint Chief complaint: Reviewed the patient's medical records and discussed the patient's progress with nursing staff. The nurse states the patient reportedly was suicidal with a plan to overdose on medication. Pt denies current SI/HI/AVH. Pt is calm and cooperative, AAO x 4, denies pain. Frequent redirection is needed. Room cleared for safety per protocol. No s/sx of acute distress noted at this time. Mental health evaluation completed and pt is awaiting placement at [facility]. Labs show + Influenza B. During my interview with the patient this morning, she was laying down. Easily arouses. Dressed appropriately. Makes fair eye contact. Flat affect. She is a/o x 3. The patient is calm and cooperative. She says she is "depressed." She says "it's in me and I know I can do something to myself. I'm ready to be transferred to another facility." She says she slept "okay" and her appetite has been "good." She denies any hallucinations. ROS: Constitutional: Negative for weight loss ENT: Negative for stridor Respiratory: Negative for cough or hemoptysis All other systems reviewed and are negative MENTAL STATUS General Appearance and Behavior: age appropriate, fair eye contact Cooperation: calm and cooperative Mood: Depressed Affect and affective range: Flat Thought Process: Goal-directed Thought Content Suicidal Ideation: Yes Homicidal Ideation: Denies HI Delusions: none elicited Insight and Judgment: Fair Cognition: Oriented Assessment: Schozoaffective Disorder RECOMMENDATIONS Start Prozac 10mg po daily to help with depressive symptoms Continue 1013 Risks, benefits and alternatives of medications discussed with the patient, questions answered and consent obtained from patient. PSYCHOTHERAPY: Supportive psychotherapy provided MEDICAL: Per primary team DELIRIUM PRECAUTIONS: Please re-orient patient frequently, keep lights on during the day, and minimize benzodiazepines and opiates as these medications could worsen patient's confusion. INSIDE PARTS SALES: Defer to primary DISPOSITION: transfer to acute psychiatric facility when medically stable FOLLOW-UP: Will follow until transferred Mental Status Exam - Vital signs Last Vital Signs Temp 97.8 F 05/07/19 09:31 Pulse 74 05/07/19 09:31 Resp 16 05/07/19 03:17 BP 105/64 05/07/19 09:31 Pulse Ox 98 05/07/19 09:31
[2019-05-07] MEDS: FLUoxetine 10 MG TAB PO SCH (11:58)
[2019-05-07] MEDS: levETIRAcetam 500 MG TAB PO SCH (21:47)
[2019-05-07] MEDS: IBUPROFEN 800 MG TAB PO PRN (21:48)
[2019-05-08] MEDS: ACETAMINOPHEN 500 MG TAB PO PRN (05:00)
[2019-05-08] MEDS: ARIPiprazole 15 MG TAB PO SCH (10:44)
[2019-05-08] MEDS: FLUoxetine 10 MG TAB PO SCH (10:44)
[2019-05-08] MEDS: clonazePAM 0.5 MG TAB PO SCH ×2 (10:44→22:45)
[2019-05-08] MEDS ORDERED: HALOPERIDOL LACTATE 5 MG/1 ML INJ IM ONE (11:20)
[2019-05-08] MEDS ORDERED: diphenhydrAMINE 50 MG/ML VIAL IM ONE (11:20)
[2019-05-08] MEDS ORDERED: diphenhydrAMINE 50 MG/ML VIAL ONE (11:21)
[2019-05-08] MEDS ORDERED: ZIPRASIDONE MESYLATE 20 MG VIAL IM PRN (14:18)
--- NOTE | 2019-05-08 14:26 | Progress Note ---
Subjective - Reason for Consult Consult date: 05/08/19 Reason for consult: manage mental health - Chief Complaint Chief complaint: Reviewed the patient's medical records and discussed the patient's progress with nursing staff. The nurse the patient has been combative, uncooperative and shouting out loud. He says the patient ripped a blanket and wrapped it around her neck. He says the gave the patient haldol and ativan but it had very little affect. He says they ended up giving her Ketamine. During my interview with the patient this morning, she was laying down. She is in the isolation room. She wakes up when I enter the room. She makes fair eye c ontact. The patient is irritable and asked when was she being transferred to [facility]. She says she is "depressed and still feels suicidal." She says she slept good. She denies hallucinations of any kinds. ROS: Constitutional: Negative for weight loss ENT: Negative for stridor Respiratory: Negative for cough or hemoptysis All other systems reviewed and are negative MENTAL STATUS General Appearance and Behavior: age appropriate, fair eye contact Cooperation: calm and cooperative Mood: Depressed Affect and affective range: Flat Thought Process: Goal-directed Thought Content Suicidal/Homicidal Ideation: Yes Hallucinations: Denies Delusions: none elicited Insight and Judgment: Fair Cognition: Oriented Assessment: Schozoaffective Disorder RECOMMENDATIONS Geodon 10mg IM q4h prn agitaion d/c haldol Continue 1013 Risks, benefits and alternatives of medications discussed with the patient, questions answered and consent obtained from patient. PSYCHOTHERAPY: Supportive psychotherapy provided MEDICAL: Per primary team DELIRIUM PRECAUTIONS: Please re-orient patient frequently, keep lights on during the day, and minimize benzodiazepines and opiates as these medications could worsen patient's confusion. PANTOGRAPH TRANSFERRER: Defer to primary DISPOSITION: transfer to acute psychiatric facility when medically stable FOLLOW-UP: Will follow until transferred Mental Status Exam - Vital signs Last Vital Signs Temp 98.3 F 05/08/19 08:00 Pulse 63 05/08/19 08:00 Resp 18 05/08/19 08:00 BP 96/62 05/08/19 08:00 Pulse Ox 99 05/08/19 08:00
[2019-05-08 20:42] VITALS: BP 96/53
[2019-05-08] MEDS: levETIRAcetam 500 MG TAB PO SCH (22:45)
== END 2019-05-08 22:50 ==
LOC: EEVIPCON 20:40 → ED 20:40
DX: T50.902A Poisoning by unspecified drugs, medicaments and biological substances, intentional self-harm, initial encounter (principal); F25.1 Schizoaffective disorder, depressive type; J10.1 Influenza due to other identified influenza virus with other respiratory manifestations; I10 Essential (primary) hypertension; F31.9 Bipolar disorder, unspecified; F17.200 Nicotine dependence, unspecified, uncomplicated; F12.10 Cannabis abuse, uncomplicated; Y92.89 Other specified places as the place of occurrence of the external cause
CPT/HCPCS: 36415; 71046; 80048; 80307; 81001; 84703; 85007; 85025; 87116; 87400; 87430; 99285; J1200; J1630; J2060; J3486; 80320; G0480; Q0162

== ENCOUNTER 2019-07-26 03:55 | Emergency (ER) | payer SELFPAY ==
--- NOTE | 2019-07-26 04:12 | Emergency Department Report ---
ED Seizure HPI - General Chief Complaint: Seizure Stated Complaint: SEIZURE Time Seen by Provider: 07/26/19 03:58 Source: patient, EMS Mode of arrival: Stretcher Limitations: No Limitations - History of Present Illness Initial Comments: Patient is a 29-year-old female that presents emergency room with complaints of seizure activity. Patient states that she has been compliant with her seizure medications. Patient states she has sufficient amount of pills. Patient denies head injury. Patient states it was witnessed by her family. Patient's family states that the patient did not hit her head. Patient denies headache. Patient also states that she was possibly to coronavirus at a local psychiatric facility. Patient states she would like to be tested. Patient denies fever and chills. Patient denies shortness of breath. Patient denies diarrhea. Patient denies nausea vomiting. MD Complaint: seizure -: Sudden Description of Episode: loss of consciousness, tonic-clonic movement -: second(s) Witnessed:: Yes Trauma: No Seizure History: known seizure disorder, compliant with medication Place: home Possible Precipitating Event: none Associated Symptoms: denies other symptoms Treatments Prior to Arrival: none - Related Data Home Medications Medication Instructions Recorded Confirmed Last Taken ARIPiprazole [Abilify] 10 mg PO QHS 05/02/19 05/02/19 Unknown levETIRAcetam [Keppra TAB] 1,000 mg PO QHS 05/02/19 05/02/19 Unknown Previous Rx's Medication Instructions Recorded Last Taken Type clonazePAM [Klonopin] 1 mg PO HS #30 tab 04/06/19 Unknown Rx Allergies Allergy/AdvReac Type Severity Reaction Status Date / Time orange Allergy Anaphylaxis Verified 01/26/18 08:42 trazodone Allergy Unknown Verified 03/31/19 23:41 ED Review of Systems ROS: Stated complaint: SEIZURE Other details as noted in HPI Constitutional: denies: chills, fever Eyes: denies: eye pain, eye discharge, vision change ENT: denies: ear pain, throat pain Respiratory: denies: cough, shortness of breath, wheezing Cardiovascular: denies: chest pain, palpitations Endocrine: no symptoms reported Gastrointestinal: denies: abdominal pain, nausea, diarrhea Genitourinary: denies: urgency, dysuria, discharge Musculoskeletal: denies: back pain, joint swelling, arthralgia Skin: denies: rash, lesions Neurological: denies: headache, weakness, paresthesias Psychiatric: denies: anxiety, depression Hematological/Lymphatic: denies: easy bleeding, easy bruising ED Past Medical Hx - Past Medical History Previous Medical History?: Yes Hx Hypertension: Yes Hx Congestive Heart Failure: No Hx Diabetes: No Hx Seizures: Yes Hx Psychiatric Treatment: Yes (Bipolar, Schizoaffective Disorder) Hx Asthma: Yes Hx COPD: No - Surgical History Past Surgical History?: Yes Additional Surgical History: Left hand - Family History Family history: no significant - Social History Smoking Status: Current Every Day Smoker Substance Use Type: None - Medications Home Medications: Home Medications Medication Instructions Recorded Confirmed Last Taken Type clonazePAM [Klonopin] 1 mg PO HS #30 tab 04/06/19 05/02/19 Unknown Rx ARIPiprazole [Abilify] 10 mg PO QHS 05/02/19 05/02/19 Unknown History levETIRAcetam [Keppra TAB] 1,000 mg PO QHS 05/02/19 05/02/19 Unknown History ED Physical Exam - General Limitations: No Limitations General appearance: alert, in no apparent distress - Head Head exam: Present: atraumatic, normocephalic - Eye Eye exam: Present: normal appearance, PERRL Pupils: Present: normal accommodation - ENT ENT exam: Present: mucous membranes moist - Neck Neck exam: Present: normal inspection - Respiratory Respiratory exam: Present: normal lung sounds bilaterally. Absent: respiratory distress - Cardiovascular Cardiovascular Exam: Present: regular rate, normal rhythm. Absent: systolic murmur, diastolic murmur, rubs, gallop - GI/Abdominal GI/Abdominal exam: Present: soft, normal bowel sounds - Extremities Exam Extremities exam: Present: normal inspection - Back Exam Back exam: Present: normal inspection - Neurological Exam Neurological exam: Present: alert, oriented X3 - Psychiatric Psychiatric exam: Present: normal affect, normal mood - Skin Skin exam: Present: warm, dry, intact, normal color. Absent: rash ED Course Vital Signs 07/26/19 04:18 Temperature 98.8 F Pulse Rate 80 Blood Pressure 125/71 [Left] O2 Sat by Pulse 100 Oximetry - Reevaluation(s) Reevaluation #1: I discussed the need for an IV and chest x-ray. Patient's states she does not want to be stuck. Patient states she wants to leave the hospital. I discussed the risk of leaving the hospital AGAINST MEDICAL ADVICE. Patient voiced understanding of the risk. Patient signed AMA form. Patient will be given discharge instructions. Due to the fact the patient states she has a possible cold exposure I recommend the patient self quarantine at home for 14 days. Patient states she was not going to do that. I encouraged the patient to commit to the self quarantining guidelines set up by the health department [facility] the [facility]. Even though the patient is leaving his medical advice, I still gave the patient discharge instructions. I discussed all results and clinical findings with patient. I discussed plan of care with patient. Patient refused plan of care and signed AMA form. Patient given discharge instructions. Patient voiced understanding of discharge instructions. 07/26/19 05:44 ED Medical Decision Making - Lab Data Result diagrams: 07/26/19 04:53 07/26/19 04:53 - Medical Decision Making Patient is a 29-year-old female that presents emergency room with a witnessed seizure x1. Patient during initial evaluation stated she thinks she was exposed to the novel coronavirus at a local psychiatric facility during her last admission there. Patient denied fever and chills. Patient denied cough. Patient denied diarrhea. Patient evaluated in the ER and had labs done. Patient's labs unremarkable. Patient refused IV. Patient signed out AMA. Patient left the hospital AGAINST MEDICAL ADVICE. I discussed the risk with patient leaving the hospital AGAINST MEDICAL ADVICE and patient voiced the understanding of the risk. Patient signed AMA form. Patient instructed to self quarantine to her house alone due to her possible exposure and asymptomatic nature. Patient instructed to follow-up with a local health department for further evaluation and possible testing for the coronavirus. - Differential Diagnosis Seizure, possible COVID 19 exposure. Critical care attestation.: If time is entered above; I have spent that time in minutes in the direct care of this critically ill patient, excluding procedure time. ED Disposition Clinical Impression: Exposure to COVID-19 virus, Seizure, Seizure disorder Disposition: - LEFT AGAINST MED ADVICE Is pt being admited?: No Does the pt Need Aspirin: No Condition: Undetermined Instructions: COVID-19, Recurrent Seizures Adult (ED), Women and Epilepsy (ED) Additional Instructions: Patient to follow-up with primary care in 2 to 3 days. Patient to follow-up w [facility] neurologist in 2 to 3 days. Patient to rest. Patient to increase water. Patient to avoid strenuous exercise or heavy lifting until cleared by neurologist. Patient to take Tylenol as needed for pain. Patient to return to the ER if condition worsens, changes or new symptoms arise. Patient to follow- up with health department for further evaluation of the possible coronavirus exposure. Patient to self quarantine for 14 days in her home alone. Patient to avoid ibuprofen. Patient to continue all medications. Referrals: PRIMARY CARE, [Primary Care Provider] - 2-3 Days Time of Disposition: 05:47
[2019-07-26 04:21] VITALS: BP 125/71
[2019-07-26] MEDS ORDERED: levETIRAcetam 1000 MG/NS 0.75% 1,000 MG/100 ML BAG IV ONE (04:42)
[2019-07-26 05:23] LABS: Hematocrit 36.2 % (30.3-42.9); Hemoglobin 11.8 gm/dl (10.1-14.3); Mean Corpuscular HGB Conc 33 % (30-34); Mean Corpuscular Volume 89 fl (79-97); Platelet Count 236 K/mm3 (140-440); Red Blood Count 4.06 M/mm3 (3.65-5.03); Red Cell Distribution Width 14.5 % (13.2-15.2)
[2019-07-26 05:39] LABS: BUN/Creatinine Ratio 26; Blood Urea Nitrogen 18 mg/dL (7-17); Calcium 9.4 mg/dL (8.4-10.2); Hemolysis Index 7
== END 2019-07-26 05:40 | disposition left against medical advice (07) ==
LOC: ED 03:55
DX: R56.9 Unspecified convulsions (principal); I10 Essential (primary) hypertension; F25.0 Schizoaffective disorder, bipolar type; J45.909 Unspecified asthma, uncomplicated; F17.200 Nicotine dependence, unspecified, uncomplicated; Z79.899 Other long term (current) drug therapy; Z98.890 Other specified postprocedural states; Z91.018 Allergy to other foods; Z88.8 Allergy status to other drugs, medicaments and biological substances; Z20.828 Contact with and (suspected) exposure to other viral communicable diseases
CPT/HCPCS: 36415; 80048; 85027; 99283; J1953

== ENCOUNTER 2019-07-26 06:14 | Emergency (ER) | payer SELFPAY ==
[2019-07-26] MEDS ORDERED: ACETAMINOPHEN 325 MG TAB PO ONE (06:25)
[2019-07-26] MEDS ORDERED: ACETAMINOPHEN 325 MG TAB ONE (06:26)
[2019-07-26 06:34] VITALS: BP 128/76
--- NOTE | 2019-07-26 06:40 | Emergency Department Report ---
Chief Complaint: Chest Pain Stated Complaint: CHEST PAIN Time Seen by Provider: 07/26/19 06:38 - HPI History of Present Illness: I needed to check back in Patient was just discharged by my colleague AGAINST MEDICAL ADVICE. She was being evaluated for seizure and possible COVID 19. She presents with cough nasal ingestion and chest pain. Chest pain is nonspecific and she is unable to describe chest pain. I have performed a medical screening exam. I do not suspect life-threatening condition such as pulmonary embolism acute coronary syndrome pericarditis. She is discharged home after medical screening exam - Exam Vital Signs: Vital Signs 07/26/19 06:23 Temperature 98.1 F Pulse Rate 100 H Respiratory 20 Rate Blood Pressure 128/76 O2 Sat by Pulse 98 Oximetry MSE screening note: Focused history and physical exam performed. Due to findings the following was ordered: ED Disposition for MSE Clinical Impression: Encounter for medical screening examination Disposition: MED SCREENING EXAM-LEFT Condition: Stable
== END 2019-07-26 07:30 | disposition left against medical advice (07) ==
LOC: ED 06:14
DX: R05 Cough (principal); R50.9 Fever, unspecified; R56.9 Unspecified convulsions; Z88.8 Allergy status to other drugs, medicaments and biological substances; Z91.018 Allergy to other foods
CPT/HCPCS: 99281